=== PATIENT | female | born 1960 | race Caucasian/White ===

== ENCOUNTER 2018-03-17 14:30 | Outpatient (RCR) | payer BC, SELFPAY ==
--- NOTE | 2018-02-24 14:39 | PTTR_ITS ---
DATE: 02/24/18 SUBJECTIVE: Emily states that her shoulder is feeling quite a bit better, and she is no longer having the pain that she had been. Her exercises have been going well and she feels like she is making progress. OBJECTIVE: Manual therapy: ([id number]). Pt AROM allows 170* with end range scapular elevation. She tolerates 150* passively with impingement symptoms full IR/ER, abduction to 130*. She received PROM into all planes, and cross friction massage to the GT. She also received deep tissue mobilization to the posterior cuff and trigger point release to the infraspinatus. Post mobilization she does report improved comfort with shoulder flexion. Therapeutic procedures (92047x5). Pt was instructed in a ther ex program. She completed 10 reps of supine flexion from 60-120* followed by clockwise and counter clockwise circles for 10 reps each. We review her HEP as she was instructed in a progressed HEP for performance here in the clinic 1x per week. She will come in to perform UBE, biking, Thera band resisted strengthening, and bicep curls 1x per week. I will drop her down to 1x per week for formal tx for mobilization. Direct treatment time: 30 minutes Total treatment time: 30 minutes
--- NOTE | 2018-03-03 15:09 | PTTR_ITS ---
DATE: 03/03/18 SUBJECTIVE: Pt reports still feeling some discomfort, but better than it was and understandable given that she's only 9 weeks out from surgery. OBJECTIVE: Therapeutic procedures ([id number]). * X See flow sheet: Progressed pt's UE strengthening program to include prone shoulder series, abduction and flexion in front of mirror. * X Provided skilled instruction in proper exercise performance: Pt required min cueing to maintain good position, especially through unfamiliar prone series. * X Other: Pt to come in 2x week for next 2 weeks to complete MSP for UE strengthening before PT recheck. Direct treatment time: 30 minutes Total treatment time: 30 minutes
--- NOTE | 2018-03-17 14:30 | PTTR_ITS ---
DATE: 03/17/18 SUBJECTIVE: Emily states that her shoulder has been feeling great. 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 She states her exercises are going well, although does have questions about a couple of her exercises. Therapeutic procedures ([id number]). Patient demonstrates full AROM of L shoulder , although with end range scapular elevation. She received PROM to the L shoulder with impingement symptoms at 150degrees of flexion, otherwise ROM is full. We reviewed her independent exercise program which she has been completing here in our clinic. She does require some modification, verbal, and tactile cues for appropriate completion of horizontal abduction. We progressed resistance with bicep curls and rows, which can be found noted on flow sheet. She requires cues for appropriate completion of theraband resisted activities, although with excellent carry over. Full program is noted on flow sheet. * Direct treatment time: 35 mins Total treatment time: 45 mins with addition of 10 mins of wellness. A/P: Have patient continue 2x a week for MSP. Follow up next week prior to her MD appt for re-evaluation. SS/dl
== END 2018-03-25 23:59 | disposition home or self-care (01) ==
LOC: PT 14:30
PROVIDERS: PCP Student in an Organized Health Care Education/Training Program; Referring Provider Orthopaedic Surgery Adult Reconstructive Orthopaedic Surgery; Visit Provider Orthopaedic Surgery Adult Reconstructive Orthopaedic Surgery
DX: Z47.89 Encounter for other orthopedic aftercare (principal); M75.42 Impingement syndrome of left shoulder
CPT/HCPCS: 97110; 97140

== ENCOUNTER 2018-06-17 08:40 | Outpatient (CLI) | payer BC, SELFPAY ==
[2018-06-17 09:22] LABS: HCT 39.9 % (36.0-46.0); HGB 12.5 g/dL (12.0-15.5); Mean Corp. HGB Concentration 31.3 g/dL (32.0-36.0); Mean Corpuscular Hemoglobin 25.9 pg (27.0-33.0); Mean Corpuscular Volume 82.6 fL (80-95); Platelet Count 355 x1000/uL (130-400); RBC 4.83 m/cumm (4.00-5.20); RBC Distribution Width 13.9 % (11.7-14.6); White Blood Cell Count 5.18 k/cumm (4.4-10.8)
[2018-06-17 09:43] LABS: Lipase 118 U/L (73-393)
[2018-06-17 09:49] LABS: ALT 22 U/L (12-78); AST 19 U/L (15-37); Albumin 2.5 g/dL (3.4-5.0); Alkaline Phosphatase 94 U/L (46-116); Anion Gap 7.6 mmol/L (3-11); BUN 10 mg/dL (7-18); Bilirubin, Total 0.2 mg/dL (0.2-1.0); CO2 28.4 mmol/L (21.0-32.0); CREATININE 0.86 mg/dL (0.55-1.02); Calcium 8.4 mg/dL (8.5-10.1); Chloride 105 mmol/L (98-107); Glucose 96 mg/dL (70-100); Potassium 3.9 mmol/L (3.5-5.1); Sodium 141 mmol/L (136-145)
== END 2018-06-17 09:00 ==
PROVIDERS: PCP Student in an Organized Health Care Education/Training Program; Visit Provider Family Medicine
DX: R10.13 Epigastric pain (principal)
CPT/HCPCS: 36415; 80053; 83690; 85027

== ENCOUNTER 2018-07-01 01:34 | Outpatient (CLI) | payer BC, SELFPAY ==
--- NOTE | 2018-07-01 08:45 | DI.US_ITS ---
SYMPTOMS/DIAGNOSIS: EPIGASTRIC PAIN, RADIATING INTO BACK, PANCREATIC PATHOLOGY EVALUATION AND WEIGHT LOSS ABDOMINAL ULTRASOUND: Routine examination. No priors. The visualized liver parenchyma is normal in appearance. There is no evidence of cholelithiasis. The common bile duct is of normal diameter. The pancreas and spleen appear intact. No renal abnormality is seen. The abdominal aorta is of normal diameter. Normal appearance of IVC. IMPRESSION: Normal abdominal ultrasound.
== END 2018-07-01 01:54 ==
PROVIDERS: PCP Student in an Organized Health Care Education/Training Program; Visit Provider Student in an Organized Health Care Education/Training Program
DX: R10.13 Epigastric pain (principal); R63.4 Abnormal weight loss
CPT/HCPCS: 76700

== ENCOUNTER 2018-07-15 00:49 | Outpatient (CLI) | payer BC, SELFPAY ==
[2018-07-15 10:04] LABS: CREATININE 0.92 mg/dL (0.55-1.02)
[2018-07-15] MEDS: Omnipaque 350 MG/ML 50 ML BTL PO (10:15)
[2018-07-15] MEDS: Breeza Beverage 473 ML BTL PO (10:16)
--- NOTE | 2018-07-15 11:30 | DI.CT_ITS ---
SYMPTOM/DIAGNOSIS: ABD PAIN WITH UNEXPLAINED WT LSOS ABDOMEN AND PELVIC CT: There are no prior comparison exams. Images were performed from the lung bases through the ischial tuberosities after IV and oral contrast. The lung bases are clear. There is a small hiatal hernia. The liver, gallbladder, spleen, pancreas, adrenals and kidneys are unremarkable. There is an area of wall thickening in the proximal sigmoid colon, overall length of approximately 7 cm. There is narrowing of the lumen. Proximal to this area, there is increased quantity of stool. There is some mild stranding in the adjacent fat. No diverticula are visible. The findings are highly suspicious for a colon carcinoma. There are tiny but enlarged mesenteric lymph nodes in the vicinity of the mass. There is a trace amount of fluid in the pelvis. The bladder, uterus and ovaries are unremarkable. IMPRESSION: Large mass in the proximal sigmoid colon is suspicious for carcinoma. There is no evidence of metastatic disease.
[2018-07-15] MEDS: Omnipaque 350 MG/ML 100 ML BTL IJ (11:32)
== END 2018-07-15 01:09 ==
PROVIDERS: PCP Student in an Organized Health Care Education/Training Program; Visit Provider Family Medicine
DX: R10.9 Unspecified abdominal pain (principal); R63.4 Abnormal weight loss; N28.9 Disorder of kidney and ureter, unspecified; K63.89 Other specified diseases of intestine; D37.4 Neoplasm of uncertain behavior of colon; K44.9 Diaphragmatic hernia without obstruction or gangrene
CPT/HCPCS: 36415; 74177; 82565; J3490; Q9967

== ENCOUNTER 2019-01-03 00:27 | Outpatient (CLI) | payer BC, SELFPAY ==
--- NOTE | 2019-01-03 08:30 | DI.CT_ITS ---
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 No pulmonary nodule is identified. There is no evidence of an infiltrate or pleural effusion. The heart is not enlarged. There is no pericardial effusion. The aorta is intact. Degenerative changes involving the dorsal spine are demonstrated. There is nothing to suggest metastases. The liver, gallbladder, pancreas, spleen and kidneys are intact. The adrenals are normal. There is no evidence of adenopathy. There is no evidence of bowel obstruction. The patient is status post resection of a sigmoid carcinoma. There is no evidence of pelvic adenopathy or mass. The bladder is normal. The reproductive organs as visualized are intact. There are degenerative changes involving the lumbar spine and no bony findings to suggest metastatic disease. SUMMARY: No evidence of metastatic disease in the chest, abdomen or pelvis.
[2019-01-03 09:01] LABS: Abs Immature Grans 0.01 k/cumm (0.0-0.09); Absolute Basophil Count 0.02 k/cumm (0.0-0.2); Absolute Eosinophil Count 0.07 k/cumm (0.0-0.7); Absolute Lymphocyte Count 1.66 k/cumm (1.2-3.4); Absolute Monocyte Count 0.31 k/cumm (0.11-0.7); Absolute Neutrophil Count 2.43 k/cumm (1.2-6.7); Basophils % 0.4; Eosinophils % 1.6; HCT 38.3 % (36.0-46.0); HGB 11.9 g/dL (12.0-15.5); Immature Grans % 0.2; Lymphocytes % 36.9; Mean Corp. HGB Concentration 31.1 g/dL (32.0-36.0); Mean Corpuscular Hemoglobin 24.8 pg (27.0-33.0); Mean Corpuscular Volume 79.8 fL (80-95); Mean Platelet Volume 9.1 fL (8.0-11.0); Monocytes % 6.9; Platelet Count 274 x1000/uL (130-400)
[2019-01-03 09:14] LABS: ALT 26 U/L (12-78); AST 22 U/L (15-37); Albumin 2.6 g/dL (3.4-5.0); Alkaline Phosphatase 91 U/L (46-116); Anion Gap 6.9 mmol/L (3-11); BUN 19 mg/dL (7-18); Bilirubin, Total 0.2 mg/dL (0.2-1.0); CO2 29.1 mmol/L (21.0-32.0); CREATININE 0.85 mg/dL (0.55-1.02); Calcium 8.3 mg/dL (8.5-10.1); Chloride 105 mmol/L (98-107); Glucose 101 mg/dL (70-100); Potassium 3.8 mmol/L (3.5-5.1); Sodium 141 mmol/L (136-145); Total Protein 6.3 g/dL (6.4-8.2)
[2019-01-03] MEDS: Omnipaque 350 MG/ML 100 ML BTL IJ (10:30)
[2019-01-03] MEDS: Omnipaque 350 MG/ML 50 ML BTL IJ (10:31)
[2019-01-03] MEDS: Breeza Beverage 473 ML BTL PO (10:32)
[2019-01-04 10:29] LABS: CEA <0.5 ng/ml
== END 2019-01-03 00:47 ==
PROVIDERS: PCP Student in an Organized Health Care Education/Training Program; Visit Provider Internal Medicine Hematology & Oncology
DX: C18.7 Malignant neoplasm of sigmoid colon (principal)
CPT/HCPCS: 36415; 74177; 80053; 71260; 82378; 85025; J3490; Q9967

== ENCOUNTER 2019-01-13 01:17 | Outpatient (CLI) | payer BC, SELFPAY ==
--- NOTE | 2019-01-13 16:03 | DI.MAMMO_ITS ---
SYMPTOM/DIAGNOSIS: SCREENING, H/O COLON CA MAMMOGRAMS: Mammograms were interpreted according to the usual protocol including computer analysis with CAD system, tomosynthesis and C view imaging. Comparison is made with 2014. The breasts are composed of fatty density tissue, breast density, Category A. No suspicious masses or suspicious microcalcifications are seen. There has been no significant change. IMPRESSION: Category 1, negative mammogram. Yearly screening mammography is recommended. [facility] ASSESSMENT OF FINDINGS: Negative. Category 1. Patient will receive a letter notifying them of these results. BI-RAD category A. The breasts are almost entirely fatty.
== END 2019-01-13 01:37 ==
PROVIDERS: PCP Student in an Organized Health Care Education/Training Program; Visit Provider Nurse Practitioner Adult Health
DX: Z12.31 Encounter for screening mammogram for malignant neoplasm of breast (principal); Z85.038 Personal history of other malignant neoplasm of large intestine
CPT/HCPCS: 77063; 77067

== ENCOUNTER 2019-04-10 15:57 | Outpatient (CLI) | payer BC, SELFPAY ==
[2019-04-10 16:19] LABS: Abs Immature Grans 0.01 k/cumm (0.0-0.09); Absolute Basophil Count 0.02 k/cumm (0.0-0.2); Absolute Eosinophil Count 0.08 k/cumm (0.0-0.7); Absolute Lymphocyte Count 1.63 k/cumm (1.2-3.4); Absolute Monocyte Count 0.48 k/cumm (0.11-0.7); Absolute Neutrophil Count 3.89 k/cumm (1.2-6.7); Basophils % 0.3; Eosinophils % 1.3; HCT 39.5 % (36.0-46.0); HGB 12.5 g/dL (12.0-15.5); Immature Grans % 0.2; Lymphocytes % 26.7; Mean Corp. HGB Concentration 31.6 g/dL (32.0-36.0); Mean Corpuscular Hemoglobin 26.6 pg (27.0-33.0); Mean Platelet Volume 8.8 fL (8.0-11.0); Monocytes % 7.9; Neutrophils % 63.6; Platelet Count 305 x1000/uL (130-400); RBC Distribution Width 15.3 % (11.7-14.6); White Blood Cell Count 6.11 k/cumm (4.4-10.8)
[2019-04-10 16:27] LABS: ALT 25 U/L (14-59); AST 26 U/L (15-37); Alkaline Phosphatase 90 U/L (46-116); BUN 17 mg/dL (7-18); Bilirubin, Total 0.2 mg/dL (0.2-1.0); CREATININE 1.06 mg/dL (0.55-1.02); Calcium 8.3 mg/dL (8.5-10.1); Chloride 105 mmol/L (98-107); Estimated GFR 52.88 (mL/min/1.73m2); Glucose 105 mg/dL (70-100); Potassium 3.8 mmol/L (3.5-5.1); Sodium 143 mmol/L (136-145)
[2019-04-12 09:33] LABS: CEA <0.5 ng/ml
== END 2019-04-10 16:17 ==
PROVIDERS: PCP Student in an Organized Health Care Education/Training Program; Visit Provider Internal Medicine Hematology & Oncology
DX: C18.7 Malignant neoplasm of sigmoid colon (principal)
CPT/HCPCS: 36415; 80053; 82378; 85025

== ENCOUNTER 2019-07-17 00:54 | Outpatient (CLI) | payer BC, SELFPAY ==
[2019-07-17 09:21] LABS: ALT 23 U/L (14-59); AST 25 U/L (15-37); Albumin 2.7 g/dL (3.4-5.0); Alkaline Phosphatase 77 U/L (46-116); Anion Gap 8.6 mmol/L (3-11); BUN 21 mg/dL (7-18); Bilirubin, Total 0.4 mg/dL (0.2-1.0); CO2 29.4 mmol/L (21.0-32.0); CREATININE 0.81 mg/dL (0.55-1.02); Calcium 8.3 mg/dL (8.5-10.1); Chloride 112 mmol/L (98-107); Glucose 104 mg/dL (74-106); Potassium 4.5 mmol/L (3.5-5.1); Sodium 150 mmol/L (136-145); Total Protein 6.1 g/dL (6.4-8.2)
--- NOTE | 2019-07-17 09:59 | DI.CT_ITS ---
EXAM: CT CHEST/ABD/PEL W CLINICAL HISTORY: MALIGNANT NEOPLASM SIGMOID COLON, C18.7 SURVEILLANCE. TECHNIQUE: Imaging Protocol: Axial computed tomography images with coronal and sagittal reformatted images were created and reviewed CONTRAST MATERIAL: Intravenous: Omnipaque 350 Contrast volume 100 cc's. Oral: yes COMPARISON: CT CHEST/ABD/PEL W from 01/03/2019 FINDINGS: CHEST: Tracheobronchial tree: Patent where visualized. Mediastinum and Lou: No dominant adenopathy or fluid collection. Pulmonary parenchyma: No consolidation or dominant measurable mass. No architectural distortion. The re is again seen a calcified granuloma in the left lower lobe. Pleura: No effusion or pneumothorax. Lymph nodes: Within normal limits. Aorta: Thoracic portion non-dilated. Heart: Unremarkable. No pericardial effusion. Bones: Degenerative changes are present. No evidence of osseous metastatic disease. ABDOMEN: Liver: Normal density. No measurable mass. Gallbladder and biliary tract: No radiodense calculus or dilation. Pancreas: Normal density, no abnormal calcifications or inflammatory process. Spleen: Normal. Kidneys: Normal size, contour and axis. No radiodense stones or obstructive uropathy. No masses seen. Adrenal glands: No masses seen. Aorta: Abdominal portion non-dilated. Lymph nodes: Within normal limits. PELVIS: Bladder: Symmetric distention, no gross wall thickening. Bowel: No obstruction or bowel wall thickening. The appendix is normal in size without evidence of ad jacent mesenteric fat stranding or adjacent fluid collection. Peritoneal cavity: No ascites, collection or mesenteric inflammatory response. Bones: Within normal limits. Reproductive organs: Within normal limits. IMPRESSION: 1. No evidence of abdominal or pelvic metastatic disease. 2. No evidence of thoracic metastatic disease. DATA REPOSITORY: All CT scans at this facility are submitted to the National Radiology Data Registry (NRDR) Dose Index Registry (DIR) with the [employer] (ACR). RADIATION OPTIMIZATION: All CT scans at this facility use at least one of these dose optimization te chniques: automated exposure control; mA and/or kV adjustment per patient size (includes targeted exa ms where dose is matched to clinical indication); or iterative reconstruction.
[2019-07-17] MEDS: Omnipaque 350 MG/ML 100 ML BTL IJ (10:06)
[2019-07-17] MEDS: Omnipaque 350 MG/ML 50 ML BTL IJ (10:12)
[2019-07-17] MEDS: Breeza Beverage 473 ML BTL PO (10:13)
[2019-07-17 11:20] LABS: Absolute Basophil Count 0.02 k/cumm (0.0-0.2); Absolute Lymphocyte Count 1.23 k/cumm (1.2-3.4); Absolute Monocyte Count 0.28 k/cumm (0.11-0.7); Absolute Neutrophil Count 2.54 k/cumm (1.2-6.7); Basophils % 0.5; Eosinophils % 2.4; HGB 12.5 g/dL (12.0-15.5); Lymphocytes % 29.5; Mean Corp. HGB Concentration 32.1 g/dL (32.0-36.0); Mean Corpuscular Hemoglobin 27.5 pg (27.0-33.0); Mean Corpuscular Volume 85.7 fL (80-95); Mean Platelet Volume 9.3 fL (8.0-11.0); Monocytes % 6.7; Neutrophils % 60.9; Platelet Count 271 x1000/uL (130-400); RBC 4.55 m/cumm (4.00-5.20); RBC Distribution Width 13.7 % (11.7-14.6); White Blood Cell Count 4.17 k/cumm (4.4-10.8)
== END 2019-07-17 01:14 ==
PROVIDERS: PCP Student in an Organized Health Care Education/Training Program; Visit Provider Nurse Practitioner Adult Health
DX: C18.7 Malignant neoplasm of sigmoid colon (principal); Z12.89 Encounter for screening for malignant neoplasm of other sites; J98.4 Other disorders of lung
CPT/HCPCS: 74177; 80053; 71260; 82378; 85025; J3490; Q9967

== ENCOUNTER 2019-07-20 07:45 | Outpatient (CLI) | payer BC, SELFPAY ==
[2019-07-21 11:34] LABS: CEA <0.5 ng/mL (See Note)
== END 2019-07-20 08:05 ==
PROVIDERS: PCP Student in an Organized Health Care Education/Training Program; Visit Provider Internal Medicine Hematology & Oncology
DX: C18.7 Malignant neoplasm of sigmoid colon (principal)
CPT/HCPCS: 36415; 82378

== ENCOUNTER 2019-11-22 03:59 | Outpatient (CLI) | payer BC, SELFPAY ==
[2019-11-22 15:32] LABS: Abs Immature Grans 0.01 k/cumm (0.0-0.09); Absolute Basophil Count 0.01 k/cumm (0.0-0.2); Absolute Eosinophil Count 0.09 k/cumm (0.0-0.7); Absolute Lymphocyte Count 1.73 k/cumm (1.2-3.4); Absolute Monocyte Count 0.39 k/cumm (0.11-0.7); Absolute Neutrophil Count 4.15 k/cumm (1.2-6.7); Basophils % 0.2; Eosinophils % 1.4; HCT 41.1 % (36.0-46.0); HGB 13.6 g/dL (12.0-15.5); Immature Grans % 0.2 %; Lymphocytes % 27.1; Mean Corp. HGB Concentration 33.1 g/dL (32.0-36.0); Mean Corpuscular Hemoglobin 27.8 pg (27.0-33.0); Mean Platelet Volume 8.6 fL (8.0-11.0); Monocytes % 6.1; Platelet Count 248 x1000/uL (130-400); RBC 4.89 m/cumm (4.00-5.20); RBC Distribution Width 12.8 % (11.7-14.6); White Blood Cell Count 6.38 k/cumm (4.4-10.8)
[2019-11-22 15:41] LABS: ALT 25 U/L (14-59); AST 21 U/L (15-37); Albumin 2.9 g/dL (3.4-5.0); Alkaline Phosphatase 94 U/L (46-116); Anion Gap 3.7 mmol/L (3-11); BUN 21 mg/dL (7-18); Bilirubin, Total 0.2 mg/dL (0.2-1.0); CO2 31.3 mmol/L (21.0-32.0); Calcium 8.7 mg/dL (8.5-10.1); Chloride 102 mmol/L (98-107); Estimated GFR 56.56 (mL/min/1.73m2); Glucose 96 mg/dL (74-106); Potassium 4.1 mmol/L (3.5-5.1); Sodium 137 mmol/L (136-145); Total Protein 6.7 g/dL (6.4-8.2)
[2019-11-23 10:19] LABS: CEA <0.5 ng/mL (See Note)
== END 2019-11-22 04:19 ==
PROVIDERS: PCP Student in an Organized Health Care Education/Training Program; Visit Provider Internal Medicine Hematology & Oncology
DX: C18.7 Malignant neoplasm of sigmoid colon (principal)
CPT/HCPCS: 36415; 80053; 82378; 85025

== ENCOUNTER 2020-02-28 02:57 | Outpatient (CLI) | payer BC, SELFPAY ==
[2020-02-28] MEDS: Omnipaque 350 MG/ML 50 ML BTL IJ (08:10)
[2020-02-28] MEDS: Breeza Beverage 473 ML BTL PO ×3 (08:11→08:13)
[2020-02-28 08:12] LABS: CREATININE 0.84 mg/dL (0.55-1.02)
--- NOTE | 2020-02-28 09:20 | DI.CT_ITS ---
EXAM: CT CHEST/ABD/PEL W CLINICAL HISTORY: SIGMOID COLON CA,C18.7,CRC SURVEILLANCE, RESTAGING EXAM TECHNIQUE: COMPARISON: CT CT CHEST/ABD/PEL W from 07/17/2019 FINDINGS: CT examination of the chest abdomen and pelvis was performed with bolus infusion of 100 cc Omnipaque 350 ingestion of dilute barium. The lungs are clear. There is segmental and subsegmental pulmonary embolic disease in right lower lo be pulmonary arterial circulation. No other embolus identified. Thoracic aorta and major branches a ppear intact. No mediastinal or hilar adenopathy. No pleural effusion. No axillary or supraclavicu lar adenopathy. The liver appears normal as does the spleen. No focal metastatic lesion identified. Pancreas is unr emarkable in appearance. Gallbladder and bile ducts are CT normal. Adrenals and kidneys appear normal, no renal mass, no urinary tract calcification or obstruction. Abdominal aorta is of normal diameter and major visceral branches appear intact. Appendix is normal. Patient reportedly has history of prior sigmoid colon carcinoma, anastomosis bello ears intact, no specific evidence of recurrent disease or obstruction. No retroperitoneal or mesente melinda adenopathy. [employer] structures appear intact. No pelvic or inguinal adenopathy. No significant abdominal wall hernia seen. No suspicious bony lesion seen on scanning of the chest abdomen or pelvis. IMPRESSION: CT of the chest, abdomen, and pelvis is negative for metastatic disease. Note is made of pulmonary emboli in right lower lobe segmental and subsegmental vessels.
[2020-02-28] MEDS: Normal Saline - Diluent 50 ML VIAL IV (09:41)
[2020-02-28] MEDS: Omnipaque 350 MG/ML 100 ML BTL IJ (09:41)
[2020-02-28] MEDS: Normal Saline Flush 10 ML SYR IVP (09:42)
[2020-02-28 18:10] LABS: ALT 21 U/L (14-59); AST 20 U/L (15-37); Albumin 2.9 g/dL (3.4-5.0); Alkaline Phosphatase 87 U/L (46-116); Anion Gap 6.1 mmol/L (3-11); BUN 11 mg/dL (7-18); Bilirubin, Total 0.3 mg/dL (0.2-1.0); CO2 28.9 mmol/L (21.0-32.0); Calcium 8.9 mg/dL (8.5-10.1); Chloride 105 mmol/L (98-107); Glucose 110 mg/dL (74-106); Potassium 4.2 mmol/L (3.5-5.1); Sodium 140 mmol/L (136-145); Total Protein 6.6 g/dL (6.4-8.2)
[2020-03-01 08:42] LABS: CEA <0.5 ng/mL (See Note)
== END 2020-02-28 03:17 ==
PROVIDERS: PCP Student in an Organized Health Care Education/Training Program; Visit Provider Nurse Practitioner Adult Health
DX: C18.7 Malignant neoplasm of sigmoid colon (principal); I26.94 Multiple subsegmental thrombotic pulmonary emboli without acute cor pulmonale
CPT/HCPCS: 74177; 80053; 71260; 82378; 82565; J3490; Q9967

== ENCOUNTER 2020-03-01 01:57 | Outpatient (CLI) | payer BC, SELFPAY ==
[2020-03-01 10:00] LABS: INR 1.2 (0.9-1.1)
== END 2020-03-01 02:17 ==
PROVIDERS: Internal Medicine; PCP Student in an Organized Health Care Education/Training Program; Visit Provider Student in an Organized Health Care Education/Training Program
DX: I80.02 Phlebitis and thrombophlebitis of superficial vessels of left lower extremity (principal)
CPT/HCPCS: 36415; 85610

== ENCOUNTER 2020-03-04 02:16 | Outpatient (CLI) | payer BC, SELFPAY ==
[2020-03-04 12:51] LABS: INR 1.8 (0.9-1.1); Prothrombin Time 17.6 sec (9.3-11.0)
== END 2020-03-04 02:36 ==
PROVIDERS: PCP Student in an Organized Health Care Education/Training Program; Visit Provider Student in an Organized Health Care Education/Training Program
DX: I26.99 Other pulmonary embolism without acute cor pulmonale (principal); Z79.01 Long term (current) use of anticoagulants
CPT/HCPCS: 36415; 85610

== ENCOUNTER 2020-03-06 03:20 | Outpatient (CLI) | payer BC, SELFPAY ==
[2020-03-06 13:26] LABS: INR 2.5 (0.9-1.1); Prothrombin Time 24.7 sec (9.3-11.0)
== END 2020-03-06 03:40 ==
PROVIDERS: Nurse Practitioner Adult Health; PCP Student in an Organized Health Care Education/Training Program; Visit Provider Student in an Organized Health Care Education/Training Program
DX: I26.99 Other pulmonary embolism without acute cor pulmonale (principal); Z79.01 Long term (current) use of anticoagulants; I80.02 Phlebitis and thrombophlebitis of superficial vessels of left lower extremity
CPT/HCPCS: 36415; 85610

== ENCOUNTER 2020-06-19 02:24 | Outpatient (CLI) | payer BC, SELFPAY ==
[2020-06-19 07:44] LABS: Abs Immature Grans 0.01 10^3/uL (0.0-0.06); Absolute Basophil Count 0.02 10^3/uL (0.0-0.2); Absolute Eosinophil Count 0.07 10^3/uL (0.0-0.7); Absolute Lymphocyte Count 1.39 10^3/uL (1.2-3.4); Absolute Monocyte Count 0.24 10^3/uL (0.1-0.8); Absolute Neutrophil Count 2.68 10^3/uL (1.2-6.7); Basophils % 0.5; Eosinophils % 1.6; HCT 42.2 % (36.0-46.0); HGB 13.3 g/dL (11.2-15.7); Immature Grans % 0.2; Lymphocytes % 31.5; MCH 27.5 pg (27.0-33.0); MCHC 31.5 % (32.0-36.0); MCV 87.2 fL (80-95); MPV 8.9 fL (8.0-11.0); Monocytes % 5.4; Neutrophils % 60.8; Nucleated RBC 0 %; Platelet Count 257 10^3/uL (130-400); RBC 4.84 10^6/uL (3.93-5.22); RDW 13.5 % (11.7-14.6); WBC 4.41 10^3/uL (4.4-10.8)
[2020-06-19 08:11] LABS: ALT 21 U/L (14-59); AST 21 U/L (15-37); Albumin 2.8 g/dL (3.4-5.0); Alkaline Phosphatase 91 U/L (46-116); Anion Gap 4.3 mmol/L (3-11); BUN 12 mg/dL (7-18); Bilirubin, Total 0.3 mg/dL (0.2-1.0); CO2 29.7 mmol/L (21.0-32.0); CREATININE 0.95 mg/dL (0.55-1.02); Calcium 8.3 mg/dL (8.5-10.1); Calculated LDL 205 mg/dL (<100); Chloride 107 mmol/L (98-107); Cholesterol 282 mg/dL (<200); Glucose 95 mg/dL (74-106); HDL Cholesterol 49 mg/dL (40-60); Potassium 4.2 mmol/L (3.5-5.1); Sodium 141 mmol/L (136-145); Total Protein 6.4 g/dL (6.4-8.2); Triglyceride 144 mg/dL (<150)
[2020-06-19 19:51] LABS: CEA <0.5 ng/mL (See Note)
== END 2020-06-19 02:44 ==
PROVIDERS: PCP Student in an Organized Health Care Education/Training Program; Visit Provider Internal Medicine Hematology & Oncology
DX: Z00.00 Encounter for general adult medical examination without abnormal findings (principal); D50.9 Iron deficiency anemia, unspecified; E86.0 Dehydration; R53.83 Other fatigue; Z85.038 Personal history of other malignant neoplasm of large intestine
CPT/HCPCS: 36415; 80048; 80053; 80061; 85027; 82378; 85025; 85610

== ENCOUNTER 2020-07-09 00:34 | Outpatient (CLI) | payer BC, SELFPAY ==
--- NOTE | 2020-07-09 16:22 | DI.MAMMO_ITS ---
EXAM: MAMMO SCREENING CLINICAL HISTORY: screening,Z12.39. TECHNIQUE: Bilateral full field digital CC and MLO mammographic images were obtained with 3D tomosyn thesis and utilizing computer aided detection (CAD). COMPARISON: Prior mammograms dating back to 2013, the most recent being December 2018. FINDINGS: There are no CAD designations. There are no spiculated masses nor malignant appearing microcalcification groups. Small benign-appear ing nodule posteriorly in the right breast is unchanged from prior studies and probably a small benig n intramammary lymph node. Small benign-appearing nodule upper-outer quadrant left breast is also un changed, this seen only on 3D MLO imaging and measuring 3 x 2 millimeters. No new architectural dist ortion or skin thickening-traction. IMPRESSION: No radiographic evidence of malignancy. Stable benign findings. BI-RADS Category 2 - Benign Findings Breast Density - Category B - Scattered areas of fibroglandular density Breast density Category C or D implies that the patient has dense breast tissue. Dense breast tissue can make it harder to find cancer on a mammogram. Dense breast tissue is also associated with an incr eased risk of breast cancer. This information about the result of the mammogram report was provided to the patient to raise their awareness. Use this report when you speak with the patient about their risks for breast cancer, which includes their family history. At that time, you may recommend additional screening tests (Ultrasoun d or MRI) as these tests may add significant information. A negative radiographic report should not delay biopsy if a dominant or clinically suspicious mass is present. Up to ten percent of cancers are not identified on mammography. A negative report may reinforce clinical impression. Adenosis and dense breasts may obscure an underlying neoplasm. False positive reports average 6 to 10%. Patient will receive a letter notifying them of these results.
== END 2020-07-09 00:54 ==
PROVIDERS: PCP Student in an Organized Health Care Education/Training Program; Visit Provider Student in an Organized Health Care Education/Training Program
DX: Z12.31 Encounter for screening mammogram for malignant neoplasm of breast (principal)
CPT/HCPCS: 77063; 77067

== ENCOUNTER 2020-08-15 10:28 | Emergency (ER) | payer BC, SELFPAY ==
[2020-08-15 10:32] VITALS: BP 146/86; PULSE 88; RESP 20; TEMP 36; O2SAT 98
--- NOTE | 2020-08-15 11:00 | DI.US_ITS ---
EXAM: US LOWER EXTREMITY VENOUS RT CLINICAL HISTORY: pain, hx of dvt TECHNIQUE: Right lower extremity venous ultrasound performed using grayscale, color-flow, and spectr al Doppler analysis. COMPARISON: No exams were available for comparison FINDINGS: The right common femoral, femoral and popliteal veins demonstrate normal compressibility, augmentatio n, and color Doppler. The posterior tibial veins are patent. The saphenofemoral junction is unremark able. Approximately 1.9 cm from the saphenofemoral junction, the greater saphenous vein is thrombose d from the proximal thigh to the distal thigh. There is no evidence of a Butcher cyst. The soft tissu es are unremarkable. IMPRESSION: No DVT. DATA REPOSITORY:
--- OUTSIDE RECORDS SUMMARY | 2020-08-15 11:07 | XMS_ITS ---
:1960 Author Care Team Providers Name Role Phone DR. CELI CORREA Primary Care Provider [phone] DR. CELI CORREA Referring Provider [phone] CELI CORREA DO Primary Care Provider [phone] Allergies Code Code System Name Reaction Severity Status Onset NKDA ? Medications Name Status Start Date Stop Date ? ? acetaminophen 325 mg tablet Active 09/15/2018 Not available Take 1000 mg every 6 hours by oral route as needed. Aleve Active ? Not available one at bedtime fluticasone propionate Active 09/15/2018 Not avail able 2 sprays NS daily ibuprofen 800 mg tablet Active 09/15/2018 Not avai lable Take 1 tablet 3 times a day by oral route. mometasone-formoterol HFA 100 Active 09/15/2018 No t available mcg-5 mcg/actuation aerosol inhaler warfarin 5 mg tablet Active ? Not availab le TAKE 1 TABLET (5 MG) BY ORAL ROUTE ONCE DAILY OR DIRECTED Problems Name Status Onset Date Source ? Depressive Disorder Active ? ? 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 ? Varicose Veins of Bilateral Lower Limbs Active ? ? Procedures Date Name Performed by ? 01/22/2020 Percutaneous Endovenous Ablation Therapy , Radiofrequency (Surg) Information not available Notes: right ? Colonoscopy Information not avai lable ? Shoulder Surgery Information not avai lable Notes: left shoulder ? Knee Surgery Information not avai lable ? Knee Surgery Information not avai lable Notes: meniscus and spur nremoval and then total knee left ? Knee Surgery Information not avai lable Notes: lateral release right knee ? Carpal Tunnel Surgery Information not av ailable Notes: bilat ? Foot Surgery Information not avai lable Notes: left took bone out of the side 08/23/2018 CT, Chest, W/o Contrast [facility] - Radiology [address] [place] [id number] (Work Place) 08/25/2018 CT, Chest, W/ Contrast [facility]iology [address] [place] [address] (Work Place) 02/27/2020 US, Duplex, Venous, Lower Extremity [facility] Radiology [address] [place] [address] (Work Place) 03/06/2020 US, Duplex, Venous, Lower Extremity, [facility] Complete [address] [place] [address] (Work Place) 03/29/2020 US, Duplex, Venous, Lower Extremity, [facility] Complete [address] [place] [address] (Work Place) 06/27/2020 US, Duplex, Venous, Lower Extremity, [facility] Unilateral [address] [place] [address] (Work Place) 07/24/2020 US, Duplex, Venous, Lower Extremity, [facility] Unilateral [address] [place] [address] (Work Place) Notes: SIGMOID RESECTION LAPAROS COPIC HAND ASSISTED SEP 14 2018 bilateral cataract surgery Results Lab Results Date Name Specimen Result Interpretation Description Value Range Status Address ? 07/23/2020 Prothrombin Time P High ? 20.9 sec 9.4-11.3 Final [facility] (Lab): [address] [place] [address] ? ? P ? Inr 2.06 ? Final [facility] (Lab): [address] [place] [address] 07/17/2020 COVID-19 RNA ? Upper nasopharyng ? Fi nal [facility] (SARS-CoV-2), QL, Respirato ea Hospital bus inspector-PCR, ry Source (Lab) : [address] [facility] ? ? Normal Sars not not Final [facility] Cov-2 RNA detected detected Hos pital (Covid-19 (Lab): 90 ) [facility] 01/22/2020 CBC W/ Auto Diff WB Normal Wbc 5.5 4.8-10.8 F inal [facility] 10^3/mm^3 10^3/mm^3 Hosp ital (Lab): [facility] ? ? WB Normal Rbc 4.81 3.90-5.03 Final [facility] 10^6/mm^3 10^6/mm^3 Hosp ital (Lab): [facility] ? ? WB Normal Hgb 13.9 g/dL 12.0-15.5 Final [facility] age g/dL Hospital (Lab): [facility] ? ? WB Normal Hct 42 % 36-46 % Final [facility] Hospital (Lab): [facility] ? ? WB Normal Mcv 87.9 fL 81.0-99.0 Final [facility] Hospital (Lab): [facility] ? ? WB Normal Mch 28.9 pg 27.1-32.0 Final [facility] (Lab): [facility] ? ? WB Normal Mchc 33 g/dL 33-36 Final [facility] g/dL Hospital (Lab): [facility] ? ? WB Normal Rdw 14.1 % 11.6-14.8 [facility] ? ? WB Normal Platelet 255 150-400 [facility]^3/mm^3 10^3/mm^3 Hosp ital (Lab): [facility] ? ? WB Normal Ne# 3.34 1.20-6.70 Final [facility] 10^3/mm^3 10^3/mm^3 Hosp ital (Lab): [facility] ? ? WB Normal Ly# 1.51 1.20-3.40 Final [facility] 10^3/mm^3 10^3/mm^3 Hosp ital (Lab): [facility] ? ? WB Normal Mo# 0.43 0.11-0.70 Final [facility] 10^3/mm^3 10^3/mm^3 Hosp ital (Lab): [facility] ? ? WB Normal Eo# 0.23 0.00-0.70 Final [facility] 10^3/mm^3 10^3/mm^3 Hosp ital (Lab): [facility] ? ? WB Normal Ba# 0.02 0.00-0.20 Final [facility] 10^3/mm^3 10^3/mm^3 Hosp ital (Lab): [facility] ? ? WB Normal Neut% 60 % per 40-74 % Final [facility] 100 WBC per 100 Hospital WBC (Lab): [facility] ? ? WB Normal Ly% 27 % per 19-48 % [facility] 100 WBC per 100 Hospital WBC (Lab): [facility] ? ? WB Normal Mo% 7.8 % per 3.0-10.0 Final [place] [facility] WBC % per 100 Hospit al WBC (Lab): [facility] ? ? WB Normal Eo% 4.2 % per 1.0-7.0 % Final [facility] 100 WBC per 100 Hospital WBC (Lab): [facility] ? ? WB Normal Ba% 0.4 % per 0.0-2.0 % Final [facility] 100 WBC per 100 Hospital WBC (Lab): [address] [place] [address] 01/22/2020 Hepatic Function P Normal Alt 29 U/L 14-59 U/L Final [facility] Panel, Serum Hosp ital (Lab): [address] [place] [address] ? ? P Normal Ast 27 U/L 15-37 U/L Final [facility] Hospital (Lab): [address] [place] [address] ? ? P Normal Alkp 83 U/L 50-130 Final [facility] U/L Hospital (Lab): [address] [place] [address] ? ? P Normal Tbil 0.4 mg/dL <=1.2 [facility] ([facility] [address] [place] [address] ? ? P Normal Dbil 0.09 mg/dL 0.00-0.20 Final [facility] mg/dL Hospital (Lab): [address] [place] [address] ? ? P Normal Tp 6.8 g/dL 6.4-8.2 [facility] ([facility] [address] [place] [address] ? ? P Low Alb 3.0 g/dL 3.4-5.0 [facility] ([facility] [address] [place] [address] ? ? P ? Glob 3.78 mg/dL ? Final [facility] e Hospital (Lab): [address] [place] [address] 01/22/2020 Carcinoembryonic S Normal Cea 0.9 NG/mL 0.0-3.8 Final [facility] Ag, Quant, Serum NG/mL Hospital or Plasma (Lab): [address] [place] [address] 01/15/2020 COVID-19 RNA ? Upper nasopharyng ? [facility] ([facility] QL, Respirato eal Hospital bus inspector-PCR, ry Source (Lab) : [address] [facility] ? ? Normal Sars not not Final [facility] Cov-2 RNA detected detected Hos pital (Covid-19 (Lab): 90 ) [facility] 09/14/2018 BMP, Serum or P High Glu 131.0 mg/dL 70.0-100 . Final [facility] Plasma 0 mg/dL Hospital (Lab): [address] [place] [address] ? ? P Normal Bun 9 mg/dL 7-18 [facility] (Lab[facility] [address] [place] [address] ? ? P Normal Creat 0.77 mg/dL 0.55-1.02 Final [facility] mg/dL Hospital (Lab): [address] [place] [address] ? ? P Normal Na 139 mEq/L 136-145 Final [facility] e mEq/L Hospital (Lab): [address] [place] [address] ? ? P Normal K 4.4 mEq/L 3.5-5.1 Final [facility] e mEq/L Hospital (Lab): [address] [place] [address] ? ? P Normal Cl 103 mEq/L 98-107 Final [facility] mEq/L Hospital (Lab): [address] [place] [address] ? ? P Normal Co2 28 mEq/L 21-32 Final [facility] mEq/L Hospital (Lab): [address] [place] [address] ? ? P Low Ca 8.0 mg/dL 8.5-10.1 [facility] (Lab[facility] [address] [place] [address] ? ? P ? Agap 12.4 ratio ? Final [facility] e Hospital (Lab): 90 [facility] ? ? P ? Bn/cr 11.8 calc ? Final [facility] Hospital (Lab): [facility] ? ? P ? Egfraa 92.99 ? Final [facility] Hospital (Lab): 90 [facility] ? ? P ? Egfrnaa 76.73 ? Final [facility] Hospital (Lab): [address] [place] [address] 09/14/2018 CBC W/ Auto Diff WB High Wbc 11.6 4.8-10.8 [facility] 10^3/mm^3 10^3/mm^3 Hosp ital (Lab): [facility] ? ? WB Normal Rbc 4.50 3.90-5.03 Final [facility] 10^6/mm^3 10^6/mm^3 Hosp ital (Lab): [facility] ? ? WB Low Hgb 11.4 g/dL 12.0-15.5 Final [facility] [place] Hospital (Lab): [address] [place] [address] ? ? WB Normal Hct 37 % 36-46 % Final [facility] Hospital (Lab): [facility] ? ? WB Normal Mcv 82.4 fL 81.0-99.0 Final [facility] Hospital (Lab): [address] [place] [address] ? ? WB Low Mch 25.3 pg 33.0-36.0 Final [facility] Hospital (Lab): [address] [place] [address] ? ? WB Low Mchc 31 g/dL 33-36 Final [facility] g/dL Hospital (Lab): [facility] ? ? WB Normal Rdw 14.7 % 11.6-14.8 Final [facility] % Hospital (Lab): [facility] ? ? WB Normal Plt 326 150-400 Final [facility] 10^3/mm^3 10^3/mm^3 Hosp ital (Lab): [facility] ? ? WB High Ne# 9.83 1.20-6.70 Final [facility] 10^3/mm^3 10^3/mm^3 Hosp ital (Lab): [facility] ? ? WB Low Ly# 0.90 1.20-3.40 Final [facility] 10^3/mm^3 10^3/mm^3 Hosp ital (Lab): [facility] ? ? WB High Mo# 0.82 0.11-0.70 Final [facility] 10^3/mm^3 10^3/mm^3 Hosp ital (Lab): [facility] ? ? WB Normal Eo# 0.00 0.00-0.70 Final [facility] 10^3/mm^3 10^3/mm^3 Hosp ital (Lab): [facility] ? ? WB Normal Ba# 0.00 0.00-0.20 Final [facility] 10^3/mm^3 10^3/mm^3 Hosp ital (Lab): [facility] ? ? WB High Ne% 85 % per 40-74 % Final [facility] 100 WBC per 100 Hospital WBC (Lab): [address] [place] [address] ? ? WB Low Ly% 8 % per 100 19-48 % Final [facility] age WBC per 100 Hospital WBC (Lab): [facility] ? ? WB Normal Mo% 7.1 % per 3.0-10.0 Final [place] [facility] WBC % per 100 Hospit al WBC (Lab): [facility] ? ? WB Low Eo% 0.0 % per 1.0-7.0 % Final [facility] 100 WBC per 100 Hospital WBC (Lab): [address] [place] [address] ? ? WB Normal Ba% 0.0 % per 0.0-2.0 % Final [facility] 100 WBC per 100 Hospital WBC (Lab): [address] [place] [address] 09/13/2018 Type + Screen, S ? Abo A ? Final [facility] Hospital (Lab): [address] [place] [address] ? ? S ? Rh positive ? Final [facility] Hospital (Lab): [address] [place] [address] ? ? S Normal Abs negative negative Final [facility] (Lab): [address] [place] [address] ? ? S ? Id# [id number] [id number] Final [facility] Hospital (Lab): [address] [place] [address] 08/31/2018 Creatinine, Serum P High Creat 1.20 mg/dL 0.55- 1.02 Final [facility] or Plasma mg/dL Hospita l (Lab): [facility] ? ? P ? Egfrnaa 45.98 ? Final [facility] Hospital (Lab): [address] [place] [address] ? ? P ? Egfraa 55.73 ? Final [facility] Hospital (Lab): [address] [place] [address] 08/31/2018 CBC W/ Auto Diff WB Low Wbc 4.3 4.8-10.8 F inal [facility] 10^3/mm^3 10^3/mm^3 Hosp ital (Lab): [address] [place] [address] ? ? WB Normal Rbc 4.37 3.90-5.03 Final [facility] 10^6/mm^3 10^6/mm^3 Hosp ital (Lab): [facility] ? ? WB Low Hgb 11.3 g/dL 12.0-15.5 Final [facility] [place] Hospital (Lab): [address] [place] [address] ? ? WB Normal Hct 36 % 36-46 % Final [facility] Hospital (Lab): [address] [place] [address] ? ? WB Normal Mcv 82.8 fL 81.0-99.0 Final [facility] Hospital (Lab): [address] [place] [address] ? ? WB Low Mch 25.9 pg 33.0-36.0 Final [facility] Hospital (Lab): [address] [place] [address] ? ? WB Low Mchc 31 g/dL 33-36 Final [facility] g/dL Hospital (Lab): [address] [place] [address] ? ? WB High Rdw 14.9 % 11.6-14.8 Final [facility] % Hospital (Lab): [address] [place] [address] ? ? WB Normal Plt 281 150-400 Final [facility] 10^3/mm^3 10^3/mm^3 Hosp ital (Lab): [facility] ? ? WB Normal Ne# 2.46 1.20-6.70 Final [facility] 10^3/mm^3 10^3/mm^3 Hosp ital (Lab): [facility] ? ? WB Low Ly# 1.17 1.20-3.40 Final [facility] 10^3/mm^3 10^3/mm^3 Hosp ital (Lab): [facility] ? ? WB Normal Mo# 0.56 0.11-0.70 Final [facility] 10^3/mm^3 10^3/mm^3 Hosp ital (Lab): [facility] ? ? WB Normal Eo# 0.09 0.00-0.70 Final [facility] 10^3/mm^3 10^3/mm^3 Hosp ital (Lab): [facility] ? ? WB Normal Ba# 0.02 0.00-0.20 Final [facility] 10^3/mm^3 10^3/mm^3 Hosp ital (Lab): [facility] ? ? WB Normal Ne% 57 % per 40-74 % Final [facility] 100 WBC per 100 Hospital WBC (Lab): [address] [place] [address] ? ? WB Normal Ly% 27 % per 19-48 % Final [place] 100 WBC per 100 Hospital WBC (Lab): [address] [place] [address] ? ? WB High Mo% 13.0 % per 3.0-10.0 Final [facility] 100 WBC % per 100 Hospit al WBC (Lab): [address] [place] [address] ? ? WB Normal Eo% 2.1 % per 1.0-7.0 % Final [facility] 100 WBC per 100 Hospital WBC (Lab): [address] [place] [address] ? ? WB Normal Ba% 0.5 % per 0.0-2.0 % Final [facility] 100 WBC per 100 Hospital WBC (Lab): [address] [place] [address] ? ? WB ? [id number] no ? Final [facility] Hospital (Lab): [address] [place] [address] ? ? WB ? Morph? no ? Final [facility] Hospital (Lab): [address] [place] [address] 08/31/2018 Type + Screen, S ? Abo A ? Final [facility] Hospital (Lab): [address] [place] [address] ? ? S ? Rh positive ? Final [facility] Hospital (Lab): [address] [place] [address] ? ? S Normal Abs negative negative Final [facility]Lab): [address] [place] [address] ? ? S ? Id# [id number] [id number] ? Final [facility] Hospital (Lab): [address] [place] [address] 08/31/2018 CMP, Serum or P Normal Na 140 mEq/L 136-145 Fi nal [facility] Plasma mEq/L Hospital (Lab): [address] [place] [address] ? ? P Normal K 3.6 mEq/L 3.5-5.1 Final [facility] e mEq/L Hospital (Lab): [address] [place] [address] ? ? P Normal Cl 104 mEq/L 98-107 Final [facility] mEq/L Hospital (Lab): [address] [place] [address] ? ? P Normal Co2 27 mEq/L 21-32 Final [facility] mEq/L Hospital (Lab): [address] [place] [address] ? ? P ? Agap 13.1 ratio ? Final [facility] (Lab): [address] [place] [address] ? ? P Normal Glu 90.0 mg/dL 70.0-100. Final [facility] 0 mg/dL Hospital (Lab): [address] [place] [address] ? ? P High Bun 19 mg/dL 7-18 Final [facility] mg/dL Hospital (Lab): [address] [place] [address] ? ? P High Creat 1.09 mg/dL 0.55-1.02 Final [facility] mg/dL Hospital (Lab): [address] [place] [address] ? ? P ? Bn/cr 17.1 calc ? Final [facility] Hospital (Lab): [address] [place] [address] ? ? P Normal Ca 8.5 mg/dL 8.5-10.1 Final [facility] ge mg/dL Hospital (Lab): [address] [place] [address] ? ? P Normal Alkp 100 U/L 46-118 Final [facility] U/L Hospital (Lab): [address] [place] [address] ? ? P Normal Alt 25 U/L 14-59 U/L Final [facility] Hospital (Lab): [address] [place] [address] ? ? P Normal Ast 26 U/L 15-37 U/L Final [facility] Hospital (Lab): [address] [place] [address] ? ? P Normal Tbil 0.2 mg/dL <=1.2 Final [facility] mg/dL Hospital (Lab): [address] [place] [address] ? ? P Normal Tp 6.5 g/dL 6.4-8.2 Final [facility] g/dL Hospital (Lab): [address] [place] [address] ? ? P Low Alb 2.6 g/dL 3.4-5.0 Final [facility] g/dL Hospital (Lab): [address] [place] [address] ? ? P ? Glob 9.10 mg/dL ? Final [facility] (Lab): [address] [place] [address] ? ? P ? A/g 0.7 calc ? Final [facility] Hospital (Lab): [address] [place] [address] ? ? P ? Egfraa 62.27 ? Final [facility] Hospital (Lab): [address] [place] [address] ? ? P ? Egfrnaa 51.38 ? Final [facility] Hospital (Lab): [address] [place] [address] 08/31/2018 Carcinoembryonic S Normal Cea 2.3 NG/mL 0.0-3.8 Final [facility] Ag, Quant, Serum NG/mL Hospital or Plasma (Lab): [address] [place] [address] Past Encounters 01/15/2020 Marlon Jones, DO: [address] [place] [address], Ph. 12/26/2019 Marlon Jones, DO: [address] [place] [phone], Ph. 09/04/2019 Marlon Jones, DO: [address] [place] [address], Ph. 06/05/2019 Marlon Jones, DO: [address] [place] [phone], Ph. 03/09/2019 Marlon Jones, DO: [address] [place] [address], Ph. Social History Tobacco Smoking Status Never Smoker Vaccine List None recorded. Plan of Care Reminders Provider Appointments None ? ? recorded. Lab None ? ? recorded. Referral None ? ? recorded. Procedures None ? ? recorded. Surgeries None ? ? recorded. Imaging None ? ? recorded. Vitals 01/15/2020 08:20AM General Surgery F/U 20 min Height Weight BMI Blood Pressure 160.02 cm 12/26/2019 03:45PM General Surgery H&P 40 Height Weight BMI Blood Pressure 160.02 cm 95.25 kg 37.2 kg/m2 106/61 mm[Hg] 09/04/2019 03:25PM General Surgery F/U 20 min Height Weight BMI Blood Pressure 160.02 cm 95.25 kg 37.2 kg/m2 102/64 mm[Hg] 06/05/2019 03:05PM General Surgery F/U 20 min Height Weight BMI Blood Pressure 160.02 cm 96.39 kg 37.6 kg/m2 108/68 mm[Hg] 03/09/2019 04:20PM General Surgery F/U 20 min Height Weight BMI Blood Pressure 160.02 cm 88.45 kg 34.5 kg/m2 106/72 mm[Hg] 12/08/2018 04:15PM General Surgery F/U 20 min Height Weight BMI Blood Pressure 160.02 cm 88.56 kg 34.6 kg/m2 106/70 mm[Hg] 10/17/2018 01:00PM FOLLOW UP Height Weight BMI Blood Pressure 160.02 cm 84.82 kg 33.1 kg/m2 112/70 mm[Hg] 09/27/2018 01:30PM SURGICAL F/U Height Blood Pressure 160.02 cm 114/64 mm[Hg] 08/22/2018 03:15PM FOLLOW UP Height Weight BMI Blood Pressure 160.02 cm 81.65 kg 31.9 kg/m2 108/68 mm[Hg] 08/11/2018 11:00AM H&P Height Weight BMI Blood Pressure 160.02 cm 83.91 kg 32.8 kg/m2 104/70 mm[Hg]
--- NOTE | 2020-08-15 12:04 | W.ED.GENAD ---
Discharge Plan Disposition Patient Disposition: HOME Condition: Stable Discharge Details Clinical Impression: Knee pain Primary Care Provider: Tereza Saez ED Provider: Flo Gilbert Home Meds and New Rx's Prescriptions: New tramadol 50 mg tablet 50 mg PO TID PRNQty: 8 RF: 0 Continued Dulera 100-5 mcg/actuation HFA aerosol inhaler 2 puff Inhalation Q12H PRN RF: 0 celecoxib [Celebrex] 200 mg capsule 200 mg PO DAILY PRN (Reason: shoulder, hip pain) Qty: 30 RF: 0 diclofenac sodium [Voltaren] 1 % gel 4 g topical QID Qty: 100 RF: 1 warfarin 5 mg tablet 5 mg PO DAILY Qty: 100 RF: 3 loratadine 10 mg tablet 10 mg PO DAILY PRNRF: 0 acetaminophen 500 mg tablet 1,000 mg PO Q6H PRNRF: 0 Flovent HFA 44 mcg/actuation HFA aerosol inhaler 88 mcg Inhalation BID Qty: 1 RF: 0 albuterol sulfate 90 mcg/actuation aerosol powdr breath activated 2 inh IH Q4H PRN (Reason: shortness of breath or wheezing) Qty: 1 RF: 0 Discharge Instructions Instructions: Knee Pain (ED) Additional Instructions: Ultrasound was unremarkable for DVT. Wear Simba wrap as needed, advance activity as tolerated. Rest, elevate, cool and/or warm compresses every 2 hours for 20 minutes. Continue igas-xip-eitbbdy Tylenol as directed, add on tramadol. Member tramadol can be addicting, may cause drowsiness and/or constipation. Oqub-wkn-looistp stool softener may be beneficial while taking this medication. Please watch for new or worsening symptoms and return to the ER for any concerns. I have placed you on the orthopedic list. Please contact their office at your convenience to establish outpatient reevaluation. Referrals: Júnior Langston MD [ [facility] STAFF PHYSICIAN] - Medical Decision Making 59-year-old female who tells me that her orthopedic told her to have a knee replacement nearly 5 years ago, has been putting off for as long as possible. Acute on chronic pain now worsening. She needs a referral to orthopedics as well as requesting pain medication. She is specifically concerned about DVT, will obtain ultrasound and check her INR. Will not obtain x-ray imaging as patient reports that she had outpatient films within the last year and a half, known D KISHA. No recent illness or trauma. Clinically she appears well, nontoxic. No evidence of septic joint. INR is 2.6, therapeutic Ultrasound read by radiology as no DVT. Relayed the information back to the patient. She is relieved. Will provide Simba wrap for comfort. She tells me that tramadol has helped well with her discomfort in the past, will give a short-term prescription and orthopedic referral. She will also be placed on the orthopedic list. Medical Records Medical records reviewed: Yes I reviewed the patient's medical records. Lab Data Lab results reviewed: Yes I reviewed the patient's lab results. Lab results narrative: Laboratory Tests Range/Units 08/15/20 12:24 PT (9.3-11.0) sec 26.0 H INR (0.9-1.1) 2.6 H HPI General Mode of arrival: ambulatory. Date/Time Provider Initiated Documentation: 08/15/20 10:29. Limitations to Documentation: no limitations. Information obtained by: patient. HPI Narrative: This is a 59-year-old female with past medical history of depression, PE, chronic anticoagulation, left knee replacement roughly 5 years ago, told that she needed a right knee replacement. She comes in reporting acute on chronic right knee pain no obvious injury or trauma. Denies fever, redness. She reports that the anterior aspect was swollen last night, she elevated in place cool compresses, swelling went down. She has taken umfb-[id number] medication with minimal relief. She is questioning if we can provide additional pain medication for her in the short-term and also rule out a DVT given her history of DVT. Reports the pain is moderate at rest worse with movement or bearing weight. Denies chest pain or shortness of breath. Related Data Home Medications Medication Instructions Recorded Confirmed fluticasone propionate 44 88 mcg INHALATION BID #1 inhaler 10/09/19 08/15/20 mcg/actuation HFA aerosol inhaler albuterol sulfate 90 mcg/actuation 2 inh IH Q4H PRN #1 each 10/10/19 08/15/20 breath activated powder inhaler warfarin 5 mg tablet 5 mg PO DAILY #100 tab 03/21/20 08/15/20 acetaminophen 500 mg tablet 1,000 mg PO Q6H PRN tab 04/04/20 08/15/20 loratadine 10 mg tablet 10 mg PO DAILY PRN tab 04/18/20 08/15/20 celecoxib 200 mg capsule 200 mg PO DAILY PRN #30 cap 05/31/20 08/15/20 diclofenac sodium 1 % topical gel 4 g TOPICAL QID #100 g 05/31/20 08/15/20 mometasone-formoterol HFA 100 2 puff INHALATION Q12H PRN inhaler 05/31/20 08/15/20 mcg-5 mcg/actuation aerosol inhaler tramadol 50 mg PO TID PRN #8 tab 08/15/20 Previous Rx's Medication Instructions Recorded fluticasone propionate 44 88 mcg INHALATION BID #1 inhaler 10/09/19 mcg/actuation HFA aerosol inhaler albuterol sulfate 90 mcg/actuation 2 inh IH Q4H PRN #1 each 10/10/19 breath activated powder inhaler warfarin 5 mg tablet 5 mg PO DAILY #100 tab 03/21/20 celecoxib 200 mg capsule 200 mg PO DAILY PRN #30 cap 05/31/20 diclofenac sodium 1 % topical gel 4 g TOPICAL QID #100 g 05/31/20 tramadol 50 mg PO TID PRN #8 tab 08/15/20 Allergies Allergy/AdvReac Type Severity Reaction Status Date / Time No Known Allergies Allergy Verified 08/15/20 10:34 General Stated Complaint: Orthopedic AARON: 4 Review of Systems Constitutional Constitutional: Denies fever(s) and Denies weakness Cardiovascular Cardiovascular: Denies chest pain and Denies dyspnea Respiratory Respiratory: Denies dyspnea Musculoskeletal Musculoskeletal: Reports arthralgias, Denies numbness, Reports stiffness and Denies tingling Integumentary/Breasts Skin/Breast: Denies erythema and Denies rash Neurologic Neurologic: Denies numbness, Denies tingling and Denies weakness Hematologic/Lymphatic Hematologic/Lymphatic: Reports easy bleeding and Reports easy bruising [facility] Medical History Depression (05/04/14) Impingement syndrome of left shoulder (09/30/17) Cortisone Injection. [facility] (current) use of anticoagulants Started 02/2020 (Originally for thrombophlebitis, prox/close to saph, continued for PE found a day later).. Coum 2' weight. Metatarsalgia of left foot Phlebitis and thrombophlebitis of superficial vessels of left lower extremity [facility] 07/23/20 Ablation left greater saphenous vein-Karen Pulmonary embolism on right Incidental findings, CT ordered by Onco in FU to colon cancer (which, in turn, is viewed as resolved 2' surgery).. 02/2020 Varicose veins of both lower extremities Venous insufficiency of both lower extremities 01/22/20 RFA, Dr Bobby Jones Surgical History Adenocarcinoma of sigmoid colon sigmoid resection laproscopic hand assisted 09/13/18. Flo Jones D.O. [facility] Arthroscopy, Shoulder (01/03/18) Left [facility] Karthik Siddiqui MD Left medial ankle bone spur Open Carpal Tunnel release b/l Replacement of total knee joint (07/22/16) LEFT [facility] Right knee LCL release Status post endovenous radiofrequency ablation (RFA) of saphenous vein 01/13/20 Dr Jones Family History Mother Dementia due to medical condition Father Alzheimer's dementia Social History Smoking/Tobacco Use Status: Never Smoking risk assessment performed?: Yes Alcohol Intake: never Drug use: Never Substance use type: does not use Household members: other Housing: house Number of Children: 0 current occupation: works at [employer] What type of physical activity do you participate in: none Working smoke detector in home: Yes Fire extinguisher in home: Yes Carbon monox detector in home: Yes Do you feel safe at home: Yes Do you feel safe in your relationship?: Yes Exam Const General: cooperative, healthy appearing, comfortable and no acute distress Orientation: alert and awake [facility] Head: normal to inspection, normocephalic and atraumatic Eyes General: appearance normal, both eyes and all related structures Conjunctivae: conjunctivae normal Sclera: sclerae normal Neck Neck: normal visual inspection, full ROM, no meningeal signs, trachea midline and supple Resp Effort & Inspection: normal respiratory effort and able to speak in complete sentences Auscultation: clear to auscultation bilaterally Cardio Rate: regular rate Rhythm: regular rhythm Back/Spine/Pelvis Back: No back tenderness Skin General skin exam: no rashes or lesions noted Neuro General: patient alert, patient awake, moves all extremities and no focal motor deficits Cognition: normal cognition Speech: speech normal Gait: antalgic (Slightly) Sensory Exam: no sensory deficits noted Extrem General: full ROM, capillary refill normal, no pedal edema and no calf tenderness Right lower extremity: full ROM, normal capillary refill and knee Details: normal to inspection, tenderness (Diffuse anterior), normal ROM, knee ligament exam normal and other (Negative Homans' sign); no swelling, no ecchymosis and no crepitus; no edema Psych Appearance: grossly normal Mental Status: mental status grossly normal Course Vital Signs Vital signs: Vital Signs Temperature 36.0 C L 08/15/20 10:32 Pulse 88 08/15/20 10:32 Respiratory Rate 20 08/15/20 10:32 Blood Pressure 146/86 H 08/15/20 10:32 Pulse Oximetry 98 08/15/20 10:32 Temperature 36.0 C L 08/15/20 10:32 Temperature Source Skin 08/15/20 10:32 Pulse 88 08/15/20 10:32 Respiratory Rate 20 08/15/20 10:32 Respiratory Effort Non-Labored 08/15/20 10:36 Blood Pressure 146/86 H 08/15/20 10:32 Blood Pressure Position Sitting 08/15/20 10:32 Pulse Oximetry 98 08/15/20 10:32 Oxygen Delivery Method Room Air 08/15/20 10:32 Oxygen Flow Rate 0 08/15/20 10:32 Pain Level 6 08/15/20 10:37
[2020-08-15 12:40] LABS: INR 2.6 (0.9-1.1)
== END 2020-08-15 13:26 | disposition home or self-care (01) ==
PROVIDERS: Emergency Provider Physician Assistant; PCP Student in an Organized Health Care Education/Training Program
DX: M25.561 Pain in right knee (principal); Z86.718 Personal history of other venous thrombosis and embolism
CPT/HCPCS: 36415; 99284; 85610; 93971

== ENCOUNTER 2020-09-16 13:31 | Outpatient (CLI) | payer BC, SELFPAY ==
--- NOTE | 2020-09-16 13:30 | RT.EKG_ITS ---
APPROVED REPORT Exam: Resting ECG Patient Location: O HR:75 bpm ECG Measurements Heart Rate 75 AXIS OK 145 P 70 QRSd 90 QRS -45 QT 390 T 35 QTc 436 Conclusion Sinus rhythm...normal P axis, V-rate 50- 99 Left anterior fascicular block...axis(240,-40), init forces inf Consider right ventricular hypertrophy...large R or R' V1/V2
== END 2020-09-16 13:32 | disposition home or self-care (01) ==
LOC: DI.CARD 13:32
PROVIDERS: PCP Student in an Organized Health Care Education/Training Program; Visit Provider Internal Medicine Cardiovascular Disease
DX: I44.4 Left anterior fascicular block (principal)
CPT/HCPCS: 93010

== ENCOUNTER 2020-10-07 03:13 | Outpatient (CLI) | payer BC, SELFPAY ==
[2020-10-07 10:53] LABS: HCT 42.1 % (36.0-46.0); HGB 13.6 g/dL (11.2-15.7); MCH 28.9 pg (27.0-33.0); MCHC 32.3 % (32.0-36.0); MCV 89.4 fL (80-95); MPV 8.7 fL (8.0-11.0); Platelet Count 245 10^3/uL (130-400); RBC 4.71 10^6/uL (3.93-5.22); RDW 13.7 % (11.7-14.6); RDW-SD 45.2 fL; WBC 5.03 10^3/uL (4.4-10.8)
[2020-10-07 11:51] LABS: Anion Gap 8.4 mmol/L (3-11); BUN 18 mg/dL (7-18); CO2 28.6 mmol/L (21.0-32.0); Calcium 8.9 mg/dL (8.5-10.1); Chloride 103 mmol/L (98-107); Estimated GFR 56.37 (mL/min/1.73m2); Glucose 110 mg/dL (74-106); Potassium 4.1 mmol/L (3.5-5.1); Sodium 140 mmol/L (136-145)
== END 2020-10-07 03:14 | disposition home or self-care (01) ==
LOC: LBO 03:13
PROVIDERS: PCP Student in an Organized Health Care Education/Training Program; Visit Provider Student in an Organized Health Care Education/Training Program
DX: M25.561 Pain in right knee (principal); M17.11 Unilateral primary osteoarthritis, right knee; Z01.818 Encounter for other preprocedural examination; Z01.812 Encounter for preprocedural laboratory examination
CPT/HCPCS: 36415; 80048; 85027

== ENCOUNTER 2020-10-09 07:33 | Day surgery (SDC) | payer BC, SELFPAY ==
[2020-10-09] VITALS (9 sets, daily range): BP systolic 125–136; BP diastolic 67–92; PULSE 71–78; RESP 12–19; TEMP 36–36.4; O2SAT 95–100
[2020-10-09] MEDS: Acetaminophen 500 MG TAB 1000 MG PO (08:17)
[2020-10-09] MEDS: Celecoxib 200 MG CAP 400 MG PO (08:18)
[2020-10-09] MEDS: Gabapentin 300 MG CAP PO (08:18)
[2020-10-09] MEDS: Lactated Ringers 1,000 ML 80 ML IV (08:25)
[2020-10-09 08:28] LABS: Prothrombin Time 9.9 sec (9.3-11.0)
--- NOTE | 2020-10-09 09:22 | DSE_ITS ---
Date of service: 10/09/20 DS: Diagnosis Discharge Diagnosis (1) Primary osteoarthritis of right knee: Status: Acute Discharge Plan Disposition Patient Disposition: HOME Condition: Good Discharge Details Reason For Visit: Right Knee DJD Attending Provider: Júnior Langston Primary Care Provider: Tereza Saez Home Meds and New Rx's Prescriptions: New celecoxib 200 mg capsule 200 mg PO BID PRN (Reason: pain) Qty: 60 RF: 1 acetaminophen 500 mg tablet 1,000 mg PO Q8H PRN (Reason: pain) Qty: 90 RF: 3 pantoprazole 40 mg tablet,delayed release (DR/EC) 40 mg PO DAILY Qty: 30 RF: 0 docusate sodium [Colace] 100 mg capsule 100 mg PO BID PRNQty: 10 RF: 0 gabapentin 300 mg capsule 300 mg PO QHS Qty: 14 RF: 0 oxycodone 5 mg tablet 5 mg PO Q4H Qty: 18 RF: 0 Continued Dulera 100-5 mcg/actuation HFA aerosol inhaler 2 puff Inhalation Q12H PRN RF: 0 warfarin 5 mg tablet 5 mg PO DAILY Qty: 100 RF: 3 loratadine 10 mg tablet 10 mg PO DAILY PRNRF: 0 Flovent HFA 44 mcg/actuation HFA aerosol inhaler 88 mcg Inhalation BID Qty: 1 RF: 0 albuterol sulfate 90 mcg/actuation aerosol powdr breath activated 2 inh IH Q4H PRN (Reason: shortness of breath or wheezing) Qty: 1 RF: 0 diclofenac sodium [Voltaren] 1 % gel 4 g topical QID Qty: 100 RF: 1 enoxaparin [Lovenox] 100 mg/mL syringe 100 mg SC Q12H Qty: 4 RF: 0 Discontinued tramadol 50 mg tablet 50 mg PO TID PRN (Reason: severe pain (scale score 7-10)) Qty: 12 RF: 0 acetaminophen 500 mg tablet See Rx Instructions PO TID PRNRF: 0 Discharge Instructions Additional Instructions: Total Knee Discharge Instructions Activity: The most important activity is to walk. You should try to take short walks a few times a day. It is important that when resting you work on keeping the knee straight. Avoid putting a pillow behind the knee as this will encourage flexion. Work on range of motion exercises as provided by Physical Therapy. - Start outpatient physical therapy within 2 weeks. - You should wear the TAMI hose on both legs for 2 weeks. You may remove these at night. You may also use any compression sock in place of the TAMI hose. Dressing: You may remove the Simba wrap on your leg 2 days after your surgery and put on the TAMI stocking given to you from the hospital. Keep the surgical dressing (underneath the SIMBA wrap) in place for at least one week. After the first week it may be removed and replaced with light gauze and tape or nothing. The wound and dressing may get wet after 3 days but avoid soaking the dressing or otherwise it will need to be changed. Many people prefer covering the dressing with cling wrap (saran wrap) to minimize it from getting soaked. If it gets wet, just pat dry. If it starts to peel off then it will need to be changed. Medications: - You should take Tylenol and anti-inflammatory Celebrex as your primary pain control medications. If the Celebrex is too expensive or not covered, please call the office for another alternative (Advil/Ibuprofen or Naproxen/Aleve). The Celebrex (and any anti-inflammatory) does increase your risk of an adverse bleeding event since you are on Coumadin and being bridged with Lovenox. If you notice any oozing from your wound or any blood or color changes to your sputum or stool, please stop the Celebrex and contact your PCP or Dr. Langston. - You have been prescribed a stronger pain medication Oxycodone for breakthrough pain, take as needed as prescribed. - You have also been prescribed a stomach acid reduction agent Pantoprozole to help reduce stomach acid and reflux. - You have been prescribed Gabapentin to take at night for restlessness and nerv e pain. - You will be taking Coumadin for DVT prevention. You will resume your home dose of Coumadoin starting on the night of surgery. You will need to have your INR checked in 3-5 days to check on your blood thinness. You should use the Lovenox for the first 2 days (100mg twice a day) to bridge until the Coumadin is in effect. - If you have constipation you should take Colace or Miralax (both [id number]). It takes most people 3-4 days to have a bowel movement. Follow-up: 2 weeks. INR check within 3-[address] Dr[address] Saez. If you have any acute concerns or questions, please do not hesitate to contact the office at [phone]. You may contact Dr. Langston with any questions after hours through the hospital at [phone] or on his cell phone at [phone]. 1. Encounter Date and Reason I certify that YUAN MATAMOROS was seen by Júnior Langston MD on 10/09/20 and that I had a [id number] encounter with this patient that meets the physician face to face encounter requirements. 2. Clinical Findings Supporting Skilled Need and Homebound Status I certify that home health services are medically necessary, include either intermittent retirement and/or physical/speech therapy, and that this patient is homebound in that absences from the home require considerable and taxing effort and are infrequent or of short duration, or are attributable to the need to receive medical care. [X] (a) Attached documentation from encounter provides clinical findings supporting skilled need and homebound status (including what assistance patient requires to leave the home). The encounter with the patient was in whole, or in part, for the following medical condition, which is the primary reason for home health care: Right Knee DJD Long-Term: Physical Therapy: Yuan would benefit from home physical therapy to assist with recovery from knee replacement. She has notable weakness and range of motion limitations which limit her ambulatory capacity. Please focus on obtaining independent ambulation with assistive device as well as working on knee extension and flexion. She is weight bearing as tolerated without restrictions. She also will need INR checks to be done until she is back in her regular range of INR and her home dose of Coumadin. The first INR check should be done within 3-5 days of surgery. Speech Therapy: Homebound: Yuan is unable to leave her home unassisted. She has significant limitations with ambulation and weakness. 3. Certification and Authentication I certify that I composed the above information based on my clinical judgement relating to this patient's medical condition and, if applicable, clinical findings communicated to me by the NPP or inpatient physician who performed the Home Health Referral. All further orders will be obtained through Dr. Saez (INR) and Dr. Langston. Referrals: Júnior Langston MD [ [facility] STAFF PHYSICIAN] - Equipment/Supplies: Walker Activity:: Activity as Tolerated Shower/Bathe:: 72 hours Diet:: As Tolerated Discharge Orders Discharge Orders: Discharge Order (Routine); Ordered 10/09/20 Ordered By: Júnior Langston DS: Summary Time Spent with Patient providing and/or coordinating discharge services: Less than 30 minutes Status at Discharge Functional status at discharge: uses cane/walker Overall status at discharge: patient is progressing back to baseline Mental Status: mental status grossly normal Speech and Movement: speech and movement normal Mood: congruent mood Affect: normal affect Exam Psych Mental Status: mental status grossly normal Speech and Movement: speech and movement normal Mood: congruent mood Affect: normal affect DS: Data Vitals/I&O Vitals and I&O: Vital Signs Temperature 36.4 C L 10/09/20 08:11 Pulse 78 10/09/20 08:11 Pulse Rhythm Regular 10/09/20 08:11 Respiratory Rate 18 10/09/20 08:11 Respiratory Depth Normal 10/09/20 08:11 Blood Pressure 136/81 10/09/20 08:11 Pulse Oximetry 99 10/09/20 08:11 Oxygen Delivery Method Room Air 10/09/20 08:11 Oxygen Flow Rate 0 10/09/20 08:11 Pain Level 8 10/09/20 08:11 Intake & Output 10/08/20 10/08/20 10/09/20 11:59 23:59 11:59 Weight 88.8 kg Data Completed and Pending Labs on day of discharge: Labs from last 24 hours 10/09/20 08:05 PT 9.9 INR 1.0 [facility] Medical History Depression (05/04/14) Impingement syndrome of left shoulder (09/30/17) Cortisone Injection. [facility] (current) use of anticoagulants Started 02/2020 (Originally for thrombophlebitis, prox/close to saph, continued for PE found a day later).. Coum 2' weight. Metatarsalgia of left foot Phlebitis and thrombophlebitis of superficial vessels of left lower extremity s/p ablation (Yolette Jones [facility], 02/2020) 07/23/20 Ablation left greater saphenous vein-Karen Pulmonary embolism on right Incidental findings, CT ordered by Onco in FU to colon cancer (which, in tur n, is viewed as resolved 2' surgery).. 02/2020 Varicose veins of both lower extremities Venous insufficiency of both lower extremities 01/22/20 RFA, Dr Bobby Jones Surgical History Adenocarcinoma of sigmoid colon sigmoid resection laproscopic hand assisted 09/13/18. Flo Jones D.O. [facility] Arthroscopy, Shoulder (01/03/18) Left [facility] Karthik Siddiqui MD Hx of colonoscopy Left medial ankle bone spur Open Carpal Tunnel release b/l Replacement of total knee joint (07/22/16) LEFT [facility] Right knee LCL release Status post endovenous radiofrequency ablation (RFA) of saphenous vein 01/13/20 Dr Jones Family History Mother Dementia due to medical condition Father Alzheimer's dementia Social History Smoking/Tobacco Use Status: Never Smoking risk assessment performed?: Yes Alcohol Intake: never Drug use: Never Substance use type: does not use Household members: other Housing: house Number of Children: 0 current occupation: works at [employer] What type of physical activity do you participate in: none Working smoke detector in home: Yes Fire extinguisher in home: Yes Carbon monox detector in home: Yes Do you feel safe at home: Yes Do you feel safe in your relationship?: Yes
[2020-10-09] MEDS: ceFAZolin 2 GM/50 ML BAG IVPB (09:25)
[2020-10-09] MEDS: Normal Saline 20 ML VIAL (10:30)
[2020-10-09] MEDS: Ketorolac 30 MG/ML VIAL (10:30)
[2020-10-09] MEDS: Bupivacaine 0.25% Pres-Free 30 ML VIAL (10:30)
--- NOTE | 2020-10-09 10:56 | W.PM.OP ---
Date of service: 10/09/20 Time of Service: 10:56 Operative Note Operative Note DATE OF PROCEDURE: 10/09/20 PRE-OP DIAGNOSIS: Right Knee Osteoarthritis POST-OP DIAGNOSIS: same PROCEDURE: Right Total Knee Replacement SURGEON: Júnior Langston REINSURANCE CLAIM ANALYST: Sriram Saeed ANESTHESIA TYPE: General LMA/ETT Refer to Anesthesia Record ESTIMATED BLOOD LOSS: 300 PATHOLOGY: none sent TOURNIQUET TIME: 0 COMPLICATIONS: None Patient was transported to: PACU Patient's condition: stable Implants: 1. Depuy Attune Cementless Cruciate Retaining Femoral Component, Size 4 Narrow 2. Depuy Attune Cementless Rotating Platform Tibial Component, Size 3 3. Depuy Attune 4x7mm CR/RP Poly 4. Depuy Attune Patellar Component, Size 35mm Indications: I have seen Emily in clinic for symptoms of knee arthritis, confirmed with radiographic findings. Emily has exhausted nonoperative methods and was having significant limitations in daily function and desired better function and less pain. I discussed the technical details of a knee replacement. She had knee replacement performed elsewhere on the left side with good results. I explained the risks of the procedure to include, but not limited to, bleeding, infection, pain, stiffness, fracture, damage to nerves and vessels, damage to muscles and tendons, loosening, need for repeat procedure, blood clot and cardiopulmonary demise. Despite these risks, Emily elected to proceed. Findings: There was significant signs of arthritis throughout the knee, most focused in the medial and patellofemoral spaces. Procedure Description: Emily was greeted in the preoperative holding area where the correct side was identified and marked. The consent was reviewed with the patient and signed. The history and physical was updated. All questions were answered. Preoperative medications were administered: Acetaminophen 1000mg, Celebrex 400mg, and Gabapentin 300mg. An adductor canal block was then administered by the anesthesia team in the PACU. Emily was taken back to the operating room. A spinal anesthestic was attempted but unsuccessful. The patient was placed into the supine position on the operating room table. A nonsterile tourniquet was placed high onto the leg but only used for cementing. Posts were placed for positioning during the procedure. All bony prominences were well padded. Prophylactic antibiotics in the form of Cefazolin were administered. 1g of Tranxemic Acid was given intravenously within 30 minutes of incision. The right leg was then prepped with Chloraprep and draped in a standard fashion with impervious stockinette. A second prep with Chloraprep was performed prior to application of Iodine impregnated skin protection. A timeout to confirm correct identity, side and site, procedure, allergies, anesthesia, and medical concerns was performed. With the knee in some flexion, a midline incision was made overlying the knee. Full thickness skin flaps were raised once the extensor mechanism was encountered. These were raised medially and laterally. Any bleeding was controlled with electrocautery. Once the extensor mechanism was fully exposed, a medial parapatellar arthrotomy was performed in a flexed position. All bleeding from the arthrotomy and the geniculate arteries was coagulated. A medial subperiosteal peel was performed with electrocautery to the midcoronal plane. The fat pad was removed while keeping the patellar tendon protected. The anterior distal femur synovium was removed for later visualization. The ACL and PCL were resected and the anterior horn of the lateral meniscus was transected. The knee was then flexed with the patella translated but was difficult to missy. Using a step drill, and based on preoperative templating, the femoral canal was entered. This was done with a step drill without any difficulty. The intramedullary distal femoral cut guide was inserted, set to a 5 degree valgus cut and 9mm cut thickness. The distal femoral cut guide was then held in position and pinned. With the soft tissues protected, the distal cut was performed. This was passed over a few times to ensure a planar cut. I then turned attention to the tibia. The extramedullary guide was placed onto the leg. The distal aspect was slid medial to adjust for position of center of ankle and stay in line with shaft of the tibia. Approximately 3-5 degrees of posterior slope was kept in the proximal cutting guide. The center of the guide was aligned with the PCL. The stylus was used to assess cut thickness. The medial side, most involved side, was set for a 3mm cut, corresponding to 8mm laterally. This was then held in position and pinned into place with 2 additional pins and a cross pin for stability. The medial and lateral collateral ligaments were protected and the cut was performed. With this completed, it was assessed and noted to be of appropriate dimensions. The guide was removed. A spacer block was inserted and the knee was brought into extension. The 7mm spacer block provided full extension, without hyperextension and with stability of both the medial and lateral collateral ligaments was assessed. The pins from the femur and the tibia were then removed. The distal femur was then sized. The anterior stylus was placed onto the lateral ridge of the anterior femur. This indicated a size 4 narrow femur. The external rotation of the guide was adjusted to 3 degrees to match the epicondylar axis, perpendicular to Derick?s line. The 4-in-1 cutting guide was the placed. The posterior medial femur cut was evaluated and appeared of good thickness. The spacer block was inserted underneath the cutting guide and stability was confirmed in 90 degrees of flexion. An luba wing was used to confirm appropriate position of the anterior cut to avoid notching. This cutting guide was ensured to be flush on the cut surface and then pinned into place with headed pins. While protecting the soft tissues, quad tendon, and collateral ligaments, the anterior and posterior cuts were performed with a saw. The central two pins were removed and the posterior and anterior chamfers were cut next. The notch-cutting guide was placed. This was pinned to lateralize the femoral component as much as possible while keeping it flush on the cut surface. This was then pinned into position. A reciprocating saw was used to make the notch cut. A rasp smoothed the cut surfaces. The medial and lateral menisci were removed. A trial femoral component was then inserted, impacted down to the cut surfaces, and the lug holes were drilled. A provisional trial tibial component was placed and the knee was brought through range of motion. There was noted to be excellent extension and flexion. There was no significant instability. The patella was tracking without thumbs. A size 7mm polyethylene component provided the best range of motion and stability with less than 2mm gapping with medial and lateral stress and full extension without significant hyperextension. The tibial cut surface was fully exposed. The tibia was then sized as a 3. The tibia had been previously marked during trialing to correspond to the center of the tibial component to help with rotation. The trial was aligned to this sriram, approximately rotated to the medial 1/3rd of the tibial tubercle. The trial was pinned into place. The tibia was prepared with a reamer and a keel punch and lug holes. The knee was then brought into extension and the patella was measured as 21mm. Using the patellar clamp and cut guide, this was resected to a flat surface with at least 13mm of thickness remaining. The size 35 patella fit the best. This was oriented and then clamped into position. The lugs were drilled. The trial components were removed. The final components were opened on the back table. The periosteal and capsular tissues, especially posteriorly, around the knee were then systematically injected with a periarticular cocktail consisting of 50cc 0.25% Marcaine, 30mg Ketorolac, 20cc of Exparal and 50cc of injectable saline. The knee was thoroughly irrigated with a pulse lavage and dried. Irrisept was also used to irrigate the tissues. On the back table, with the implants opened, the cement was mixed. One batch of high viscosity cement was prepared with vacuum assistance. After the cement was ready a small amount was placed on the cut surface of the patella and the patellar button was clamped into position and held. While the cement was hardening, the cementless knee components were placed. Starting with the tibial component, the tibia was subluxed anteriorly and the lug holes of the component were lined up. The tibia was then impacted with an impactor and mallet until the tibial component was in contact with the tibia. The final polyethylene component was inserted. Then, the femoral component was inserted. The lug holes were aligned and the component was impacted into position. The knee was irrigated with Irrisept chlorhexadine solution. This was allowed to sit in the knee for 3 minutes. After the cement had finally cured, approximately 15min, the clamp was removed from the patella and the knee was taken through range of motion. The patella was tracking with a no-thumbs technique. The capsule was then reapproximated with a No. 1 Vicryl at multiple locations. The capsule was finally closed with a No. 2 Stratafix, barbed suture. The second dosing of 1g TXA was started. Deep tissues were then reapproximated with 0 Vicryl and 2-0 Vicryl. The skin was closed with a running 3-0 Monocryl in a subcuticular fashion. This was reinforced with skin glue. A Mepilex silver dressing was applied along with a [id number] DOMENIC wrap. A CryoCuff was applied. Emily was transferred to the hospital bed without difficulty an suffering no apparent complication. Emily has a good prognosis. Physical therapy will start today and without restrictions, weight-bearing as tolerated. She will return to Coumadin for her DVT prophylaxis.
[2020-10-09] MEDS: Normal Saline Flush 10 ML SYR IV (12:02)
[2020-10-09] MEDS: HYDROmorphone 2 MG/ML VIAL IVP (12:02)
--- NOTE | 2020-10-09 13:18 | IN_ITS ---
Date of service: 10/09/20 Time of Service: 13:18 PT Notes Visit Reasons: Right Knee DJD Physical Therapy Day Surgery Initial Evaluation Date: 10/09/2020 Referring Doctor: Júnior Langston MD PT Orders: PT CONSULT: S/P Ortho surgery Precautions: WBAT on R LE with AD. Patient Profile/Admitting Diagnosis: Emily is a 59-year-old female with primary osteoarthritis of the right knee is status post right total knee arthroplasty on postoperative day 0. PMHX: Medical History Depression (05/04/14) Impingement syndrome of left shoulder (09/30/17) Cortisone Injection. [facility] (current) use of anticoagulants Started 02/2020 (Originally for thrombophlebitis, prox/close to saph, continued for PE found a day later).. Coum 2' weight. Metatarsalgia of left foot Phlebitis and thrombophlebitis of superficial vessels of left lower extremity [facility] 07/23/20 Ablation left greater saphenous vein-[facility]aren Pulmonary embolism on right Incidental findings, CT ordered by [facility] in FU to colon cancer (which, in turn, is viewed as resolved 2' surgery).. 02/2020 Varicose veins of both lower extremities Venous insufficiency of both lower extremities 01/22/20 RFA, Dr Bobby Jones Surgical History Adenocarcinoma of sigmoid colon sigmoid resection laproscopic hand assisted 09/13/18. Flo Jones D.O. [facility] Arthroscopy, Shoulder (01/03/18) Left [facility] Karthik Siddiqui MD Left medial ankle bone spur Open Carpal Tunnel release b/l Replacement of total knee joint (07/22/16) LEFT [facility] Right knee LCL release Status post endovenous radiofrequency ablation (RFA) of saphenous vein 01/13/20 Dr Jones Social History/Home Situation: Lives with family members in a private home with a ramp to enter. Has a flight of steps that lead to her basement. Equipment Owned/DME: [employer] Subjective: Agreeable to PT consult. Indicates that she has people who can help her at home as needed. Reports pain in R knee at 3/10 at rest and with movement. Amenable to having HH PT come in and monitor her PT/INR. States that she does not need to negotiate stairs as she has some people who can go down the basement for her as needed. Objective: General Observation: Cryocuff on R knee. DOMENIC wraps to R knee. IV access in R UE. TEDS in L leg. Mental Status: Alert and oriented x4 Pain: 3/10 at rest and with movement ROM: Right Lower Extremity: Is able to flex hip to about 20 degrees while seated at edge of bed. Hip abduction WFL. Knee flexion 20 degrees to 90 degrees. Knee extension -20 degrees. Ankle dorsiflexion up to 10 degrees beyond neutral. Ankle plantarflexion WFL. Left Lower Extremity: Hip flexion WFL. Hip abduction WFL. Knee flexion 10 degrees to 100 degrees. Ankle dorsiflexion up to 10 degrees beyond neutral. Ankle plantarflexion WFL. Strength: Right Lower Extremity: Hip flexors 3-/5. Hip abductors 4-/5. Knee flexors 3-/5. Knee extensors 3-/5. Ankle dorsiflexors 3-/5. Ankle plantarflexors 4/5. Left Lower Extremity: Hip flexors 4/5. Hip abductors 4/5. Knee flexors 3-/5. Knee extensors 3-/5. Ankle dorsiflexors 3-/5. Ankle plantarflexors 5/5 . Sensation: Intact and light touch in bilateral lower extremities. Bed Mobility/Transfers: Supine to sit standby assist Sit to stand standby assist Stand to sit standby assist Bed to chair standby assist Gait: Guided patient through level surface ambulation of about 200 feet using front wheeled walker with decreased katia, wide base of support, and report of pain in the right knee at 4/10. Balance: Static Sitting: Normal Dynamic Sitting: Normal Static Standing: Fair Dynamic Standing: Fair Special Tests: Mobility Limitations Standardized Measure [facility] 6 clicks Basic Mobility Inpatient Short Form: Raw Score: 22 CMS Score: 21% deficit Informed Consent/Education: Patient instructed in purpose of PT consult. Packet containing left TKA exercise protocol has been given to patient. Education and training on initial set of exercises that can be done at home have been completed with patient. Assessment: And requires the use of a front wheel walker for all mobility ADL performance in order to maximize independence and fall risk at home. She will have adequate support as she recovers at home. She will benefit from home health PT in order to provide stair negotiation training and exercise progression. Patient presents with clinical signs and symptoms consistent with current/admitting diagnoses that have resulted to mobility limitations, gait instability, and generalized weakness as demonstrated by the following impairment level findings: 1. Decreased strength to right knee major muscle groups 2. Impaired standing balance 3. Limitation of joint range of motion in right and left knee knee Impairments are contributing to the following functional limitations: 1. Inability to safely ambulate without assistive device 2. Increase completion time for mobility ADL performance 3. Increased fall risk Patient is assessed as a 29660 moderate complexity complexity based on the following: History: 59-year-old female with impairment level findings, functional limitations, and past medical history as indicated above Examination: Demonstrable impairment in strength, balance, and mobility level with underlying impairments and functional limitations as documented above Presentation: Evolving Decision Makin moderate complexity Goals: N/A. PT evaluation and 1-2 treatment sessions only for functional mobility training using recommended AD and for HEP instruction. Plan of Care/Treatment Plan: N/A. PT evaluation and 1-2 treatment session only for functional mobility training using recommended AD and for HEP instruction. PT INTERVENTION RECEIVED TODAY: Assessment for and fitting of appropriate assistive device. Guided patient through bed mobility, transfers, and mobility ADL performance on level surfaces using front wheeled walker. Educated and trained patient on HEP performance to maximize post-surgical functional outcomes. Education on the use of Cryocuff device. DISCHARGE RECOMMENDATIONS: Home when medically cleared by orthopedic surgeon. Home health PT to assess home safety and progress mobility and exercise performance. TREATMENT CODE/TIME: 83457 x 25 minutes, 94368 x 13 minutes beginning at 13:18 PM. Thank you for the opportunity to participate in the care of this patient. Rosa Elena Melchor PT, DPT, CLT [facility] [place], [place]
--- NOTE | 2020-10-09 14:35 | PTTR_ITS ---
Date of service: 10/09/20 Time of Service: 14:05 PT Notes Visit Reasons: Right Knee DJD Inpatient Physical Therapy Treatment Note [facility] Date: 10/09/2020 PRECAUTIONS: Fall, WBAT R SUBJECTIVE: Emily reports that she is feeling good. She is pleasant and agreeable to participating in PT. OBJECTIVE: PAIN: Patient c/o pulling sensation in anterior thigh with ther ex BED MOBILITY/TRANSFERS Sit-stand: S Stand-sit: S GAIT Assistive Device: FWW Weight bearing: WBAT R Assist: S Distance: 100' Deviation: Slow pace, wide JOSHUA, minimal knee flexion THEREX: Patient was instructed in a LE strengthening program, performed in a se ated position, as per flow sheet. She was issued a HEP, which was reviewed. ASSESSMENT: Patient tolerated session well without complaint. She demonstrates good understanding of LE strengthening HEP. PLAN: Continue with general strengthening and mobilization via PT upon discharge. TREATMENT CODE/TIME: 25 minutes; 01100, 08247 (14:05)
--- NOTE | 2020-10-09 15:32 | PDOC.CMPRO ---
- If Service Date Differs Date of service: 10/09/20 Time of Service: 15:32 Care Management Progress Note Emily underwent right total knee replacement surgery today. At the request of Dr. Langston, coordinates a referral to [facility] for PT and protime INR.
== END 2020-10-09 15:32 | disposition home or self-care (01) ==
PROVIDERS: PCP Student in an Organized Health Care Education/Training Program; Visit Provider Student in an Organized Health Care Education/Training Program
PROC: (CPT 27447; principal; 2020-10-09 09:30)
DX: M17.11 Unilateral primary osteoarthritis, right knee (principal); J45.909 Unspecified asthma, uncomplicated; Z86.711 Personal history of pulmonary embolism; K21.9 Gastro-esophageal reflux disease without esophagitis; Z79.01 Long term (current) use of anticoagulants
CPT/HCPCS: 27447; 76942; 97110; 97162; 97530; NC; 85610; J0690; J1100; J1885; J2001; J2250; J2405; J2704; J3010

== ENCOUNTER 2020-10-11 14:25 | Outpatient (REF) | payer BC, SELFPAY ==
[2020-10-11 16:52] LABS: INR 1.2 (0.9-1.1); PTT Activated 22.8 sec (21.0-27.5); Prothrombin Time 11.7 sec (9.3-11.0)
== END 2020-10-11 14:26 | disposition home or self-care (01) ==
LOC: LBN 14:25
PROVIDERS: PCP Student in an Organized Health Care Education/Training Program; Visit Provider Student in an Organized Health Care Education/Training Program
DX: I80.02 Phlebitis and thrombophlebitis of superficial vessels of left lower extremity (principal); Z79.01 Long term (current) use of anticoagulants; Z47.1 Aftercare following joint replacement surgery; Z96.651 Presence of right artificial knee joint
CPT/HCPCS: 85610; 85730

== ENCOUNTER 2020-10-14 22:00 | Outpatient (REF) | payer BC, SELFPAY ==
[2020-10-14 21:26] LABS: INR 1.4 (0.9-1.1); Prothrombin Time 14.3 sec (9.3-11.0)
== END 2020-10-14 22:01 | disposition home or self-care (01) ==
LOC: LBN 22:00
PROVIDERS: PCP Student in an Organized Health Care Education/Training Program; Visit Provider Student in an Organized Health Care Education/Training Program
DX: I80.02 Phlebitis and thrombophlebitis of superficial vessels of left lower extremity (principal); Z79.01 Long term (current) use of anticoagulants; Z47.1 Aftercare following joint replacement surgery; Z96.651 Presence of right artificial knee joint
CPT/HCPCS: 85610

== ENCOUNTER 2020-10-17 09:35 | Outpatient (REF) | payer BC, SELFPAY ==
[2020-10-17 10:36] LABS: INR 1.8 (0.9-1.1); Prothrombin Time 17.5 sec (9.3-11.0)
== END 2020-10-17 09:36 | disposition home or self-care (01) ==
LOC: LBN 09:35
PROVIDERS: PCP Student in an Organized Health Care Education/Training Program; Visit Provider Student in an Organized Health Care Education/Training Program
DX: I80.02 Phlebitis and thrombophlebitis of superficial vessels of left lower extremity (principal); Z96.651 Presence of right artificial knee joint; Z47.1 Aftercare following joint replacement surgery; Z79.01 Long term (current) use of anticoagulants
CPT/HCPCS: 85610

== ENCOUNTER 2020-10-19 13:20 | Outpatient (REF) | payer BC, SELFPAY ==
[2020-10-19 13:47] LABS: Prothrombin Time 21.7 sec (9.3-11.0)
[2020-10-19 13:52] LABS: INR 2.2 (0.9-1.1)
== END 2020-10-19 13:21 | disposition home or self-care (01) ==
LOC: LBN 13:20
PROVIDERS: PCP Student in an Organized Health Care Education/Training Program; Visit Provider Student in an Organized Health Care Education/Training Program
DX: I80.02 Phlebitis and thrombophlebitis of superficial vessels of left lower extremity (principal); Z47.1 Aftercare following joint replacement surgery; Z79.01 Long term (current) use of anticoagulants; Z96.651 Presence of right artificial knee joint
CPT/HCPCS: 85610

== ENCOUNTER 2020-10-24 10:02 | Outpatient (CLI) | payer BC, SELFPAY ==
--- NOTE | 2020-10-24 09:30 | DI.RAD_ITS ---
EXAM: XR STANDING ALIGNMENT CLINICAL HISTORY: 1ST POST OP R TKA. TECHNIQUE: 2D digital imaging was performed. COMPARISON: Prior x-rays 08/22/2020 FINDINGS: There has been interval placement of a right knee prosthesis appears to be in satisfactory position. Left knee prosthesis also again noted. Hips unremarkable. Degenerative changes in the ankle joints noted. IMPRESSION: DATA REPOSITORY: RADIATION DOSE DELIVERED:
--- NOTE | 2020-10-24 10:06 | DI.RAD_ITS ---
EXAM: XR KNEE RT 1V CLINICAL HISTORY: 1ST POST OP R TKA. TECHNIQUE: 2D digital imaging was performed. COMPARISON: CR XR KNEE STANDING ALIGNMENT AP LAT [place] SKYLINE RIGHT from 08/22/2020 FINDINGS: Single lateral view reveals satisfactory position alignment of the components of the recently placed right knee prosthesis. There has also been patellar resurfacing. IMPRESSION: DATA REPOSITORY: RADIATION DOSE DELIVERED:
== END 2020-10-24 10:03 | disposition home or self-care (01) ==
LOC: DIORS 10:02
PROVIDERS: PCP Student in an Organized Health Care Education/Training Program; Referring Provider Student in an Organized Health Care Education/Training Program; Visit Provider Student in an Organized Health Care Education/Training Program
DX: Z96.651 Presence of right artificial knee joint (principal)
CPT/HCPCS: 73560; 77073

== ENCOUNTER 2020-11-06 02:04 | Outpatient (CLI) | payer BC, SELFPAY ==
--- NOTE | 2020-11-06 | DI.CT_ITS ---
EXAM: CT CHEST/ABD/PEL W CLINICAL HISTORY: SIGMOID COLON CA,C18.7.SURVEILLANCE. TECHNIQUE: Imaging Protocol: Axial computed tomography images with coronal and sagittal reformatted images were created and reviewed CONTRAST MATERIAL: Intravenous: Omnipaque 350 Contrast volume:100 ml Oral: Yes COMPARISON: CT CT CHEST/ABD/PEL W from 02/28/2020 FINDINGS: CHEST: LUNGS:. There are no significant focal right lung findings. In the left lung there is a 3 millimeter nodule again noted in the superior segment of the left lower lobe, unchanged. New additional nodule s in either lung field. No pleural effusions. There are no significant focal findings in the trache a and mainstem bronchi. MEDIASTINUM: There is no hilar nor mediastinal adenopathy. Visualized thyroid unremarkable. CARDIAC: Heart size is normal. There is no pericardial effusion.Caliber of the thoracic aorta is wit hin normal limits. OSSEOUS: No significant osseous lesions.. ABDOMEN: There is no ascites. LIVER: There are no discrete focal hepatic lesions identified. GALLBLADDER/BILIARY: No obvious gallbladder pathology. CBD is not dilated. PANCREAS: No new significant pancreatic findings. Pancreas appears unchanged. SPLEEN: Spleen is not enlarged. There are no intrasplenic lesions. Splenic and portal veins are dickerson nt. ADRENALS: There are no significant adrenal masses. KIDNEYS: No calculi nor hydronephrosis. No solid renal masses. No cysts evident. ABDOMINAL AORTA: Abdominal aorta is not enlarged. LYMPH NODES: There is no retroperitoneal nor paraaortic adenopathy. ABDOMINAL WALL/GI: There are now multiple subcutaneous densities over both sides the anterior abdomin al wall. Largest of these on the right-sided measures 5.5 cm wide by 2.3. Cm. There is overlying s kin thickening. These are probably injection sites for anticoagulants. There is evidence of sys par tial sigmoid resection. No inflammatory findings nor obstruction at this level. There is no free fl uid in the pelvis. PELVIS: LYMPH NODES: There is no intrapelvic nor inguinal adenopathy. GI: No evidence of appendicitis.No evidence of sigmoid diverticulitis. URINARY BLADDER: Are wall is uniformly thickened. REPRODUCTIVE: Uterus size is age-appropriate. There are small cysts in both ovaries noted. Similar to previous OSSEOUS: Schmorl's node invagination evident in superior endplate of L2 vertebral body. Multilevel c hronic degenerative disc disease. No lytic osseous lesions. IMPRESSION: 1. Stable appearance of the partial sigmoid resection site. No obstruction or abscess at this level. 2. No evidence of metastatic disease in the abdomen and pelvis. No ascites. 3. Stable 3 millimeter left lung nodule, unchanged from previous and doubtful for metastatic disease. No intrathoracic adenopathy. No pleural effusions. 4. There are multiple subcutaneous densities on both sides the anterior abdominal wall now evident. The largest of these is to the right of center measuring 5.5 centimeters wide by 2.3 centimeters AP. These are most probably related to anticoagulants ejection sites. There is some overlying in thicke joshua. Correlation with any clinical signs of infection recommended. There are no gas bubbles seen w ithin these subcutaneous findings RADIATION DOSE DELIVERED: 1,646.22mGy.cm Total DLP DATA REPOSITORY: All CT scans at this facility are submitted to the National Radiology Data Registry (NRDR) Dose Index Registry (DIR) with the [employer] (A[employer]). RADIATION OPTIMIZATION: All CT scans at this facility use at least one of these dose optimization te chniques: automated exposure control; mA and/or kV adjustment per patient size (includes targeted exa ms where dose is matched to clinical indication); or iterative reconstruction.
[2020-11-06 09:24] LABS: Abs Immature Grans 0.01 10^3/uL (0.0-0.06); Absolute Basophil Count 0.03 10^3/uL (0.0-0.2); Absolute Eosinophil Count 0.31 10^3/uL (0.0-0.7); Absolute Monocyte Count 0.29 10^3/uL (0.1-0.8); Absolute Neutrophil Count 2.33 10^3/uL (1.2-6.7); Basophils % 0.7; Eosinophils % 7.3; HCT 36.4 % (36.0-46.0); HGB 11.7 g/dL (11.2-15.7); Immature Grans % 0.2; Lymphocytes % 30.4; MCH 29.1 pg (27.0-33.0); MCHC 32.1 % (32.0-36.0); MCV 90.5 fL (80-95); MPV 8.7 fL (8.0-11.0); Monocytes % 6.8; Neutrophils % 54.6; Nucleated RBC 0 %; Platelet Count 232 10^3/uL (130-400); RBC 4.02 10^6/uL (3.93-5.22); RDW 14.2 % (11.7-14.6); RDW-SD 47.2 fL; WBC 4.27 10^3/uL (4.4-10.8)
[2020-11-06 09:31] LABS: ALT 23 U/L (14-59); AST 24 U/L (15-37); Albumin 2.7 g/dL (3.4-5.0); Alkaline Phosphatase 114 U/L (46-116); Anion Gap 6.6 mmol/L (3-11); BUN 16 mg/dL (7-18); Bilirubin, Total 0.3 mg/dL (0.2-1.0); CO2 29.4 mmol/L (21.0-32.0); CREATININE 0.9 mg/dL (0.55-1.02); Calcium 8.4 mg/dL (8.5-10.1); Chloride 106 mmol/L (98-107); Glucose 99 mg/dL (74-106); Potassium 4.4 mmol/L (3.5-5.1); Sodium 142 mmol/L (136-145); Total Protein 6.6 g/dL (6.4-8.2)
[2020-11-06] MEDS: Normal Saline - Diluent 50 ML VIAL IV (10:26)
[2020-11-06] MEDS: Breeza Beverage 473 ML BTL PO (10:27)
[2020-11-06 17:30] LABS: CEA <0.5 ng/mL (See Note)
== END 2020-11-06 02:24 ==
PROVIDERS: PCP Student in an Organized Health Care Education/Training Program; Visit Provider Internal Medicine Hematology & Oncology
DX: C18.7 Malignant neoplasm of sigmoid colon (principal); R91.1 Solitary pulmonary nodule; R93.89 Abnormal findings on diagnostic imaging of other specified body structures
CPT/HCPCS: 74177; 80053; 71260; 82378; 85025

== ENCOUNTER 2021-04-03 01:32 | Outpatient (CLI) | payer BC, SELFPAY ==
--- NOTE | 2021-04-03 09:00 | DI.RAD_ITS ---
Exam(s) XR KNEE RT 3V AP,LAT,SRIKANTH EXAM: XR KNEE RT 3V AP,LAT,SRIKANTH CLINICAL HISTORY: evaluate for fluid,KNEE PAIN,M25.569. TECHNIQUE: 2D digital imaging was performed. COMPARISON: CR XR STANDING ALIGNMENT from 10/24/2020 CR XR KNEE RT 1V from 10/24/2020 CR XR STANDING ALIGNMENT from 10/24/2020 FINDINGS: There is stable position alignment of the femoral component of the prosthesis. Possible loosening of the tibial component, laterally when compared to the images of 10/24/2020. This is on the lateral a spect of the tibial component Correlation with clinical findings recommended. IMPRESSION: DATA REPOSITORY: RADIATION DOSE DELIVERED:
== END 2021-04-03 01:52 ==
PROVIDERS: PCP Student in an Organized Health Care Education/Training Program; Visit Provider Student in an Organized Health Care Education/Training Program
DX: M25.561 Pain in right knee (principal); Z96.651 Presence of right artificial knee joint
CPT/HCPCS: 73562

== ENCOUNTER 2021-04-04 02:50 | Outpatient (CLI) | payer BC, SELFPAY ==
[2021-04-04 14:41] LABS: Abs Immature Grans 0.01 10^3/uL (0.0-0.06); Absolute Basophil Count 0.01 10^3/uL (0.0-0.2); Absolute Eosinophil Count 0.03 10^3/uL (0.0-0.7); Absolute Lymphocyte Count 1.44 10^3/uL (1.2-3.4); Absolute Monocyte Count 0.35 10^3/uL (0.1-0.8); Basophils % 0.2; Eosinophils % 0.6; HCT 41.7 % (36.0-46.0); HGB 13.3 g/dL (11.2-15.7); Immature Grans % 0.2; Lymphocytes % 27.5; MCH 27.9 pg (27.0-33.0); MCHC 31.9 % (32.0-36.0); MCV 87.4 fL (80-95); MPV 8.9 fL (8.0-11.0); Monocytes % 6.7; Neutrophils % 64.8; Nucleated RBC 0 %; Platelet Count 245 10^3/uL (130-400); RBC 4.77 10^6/uL (3.93-5.22); RDW 13.1 % (11.7-14.6); RDW-SD 41.5 fL; WBC 5.24 10^3/uL (4.4-10.8)
[2021-04-04 16:09] LABS: ALT 22 U/L (14-59); AST 21 U/L (15-37); Albumin 3.1 g/dL (3.4-5.0); Alkaline Phosphatase 97 U/L (46-116); BUN 14 mg/dL (7-18); Bilirubin, Total 0.5 mg/dL (0.2-1.0); CREATININE 0.9 mg/dL (0.55-1.02); Calcium 8.4 mg/dL (8.5-10.1); Chloride 103 mmol/L (98-107); Glucose 115 mg/dL (74-106); Potassium 3.5 mmol/L (3.5-5.1); Sodium 139 mmol/L (136-145); Total Protein 6.3 g/dL (6.4-8.2)
[2021-04-07 10:02] LABS: CEA <2.0 ng/mL (See Note)
== END 2021-04-04 02:51 | disposition home or self-care (01) ==
LOC: LBO 02:50
PROVIDERS: PCP Student in an Organized Health Care Education/Training Program; Visit Provider Internal Medicine Hematology & Oncology
DX: C18.7 Malignant neoplasm of sigmoid colon (principal)
CPT/HCPCS: 36415; 80053; 82378; 85025

== ENCOUNTER 2021-06-30 15:31 | Outpatient (CLI) | payer BC, SELFPAY ==
--- NOTE | 2021-06-30 15:15 | DI.RAD_ITS ---
Exam(s) XR KNEE RT 2V AP,LAT EXAM: XR KNEE RT 2V AP,LAT CLINICAL HISTORY: follow up. TECHNIQUE: 2D digital imaging was performed. COMPARISON: CR XR KNEE RT 3V AP,LAT,SRIKANTH from 04/03/2021 FINDINGS: Stable alignment components prosthesis previously described horizontal lucency subjacent to lateral t ibial plateau is unchanged. No new lucencies. Prepatellar soft tissue swelling again noted, unchanged IMPRESSION: DATA REPOSITORY: RADIATION DOSE DELIVERED:
== END 2021-06-30 15:32 | disposition home or self-care (01) ==
LOC: DIORS 15:31
PROVIDERS: PCP Student in an Organized Health Care Education/Training Program; Referring Provider Student in an Organized Health Care Education/Training Program; Visit Provider Physician Assistant Surgical
DX: Z96.651 Presence of right artificial knee joint (principal)
CPT/HCPCS: 73560

== ENCOUNTER 2021-07-03 02:34 | Outpatient (CLI) | payer BC, SELFPAY ==
[2021-07-03 15:12] LABS: ESR 5 mm/hr (0-30)
[2021-07-03 17:19] LABS: C-Reactive Protein 0.05 mg/dL (0.0-0.3)
== END 2021-07-03 02:35 | disposition home or self-care (01) ==
LOC: LBO 02:34
PROVIDERS: Physician Assistant Surgical; PCP Student in an Organized Health Care Education/Training Program; Visit Provider Student in an Organized Health Care Education/Training Program
DX: Z96.651 Presence of right artificial knee joint (principal)
CPT/HCPCS: 36415; 85652; 86140

== ENCOUNTER 2021-11-11 00:45 | Outpatient (CLI) | payer BC, SELFPAY ==
[2021-11-11 09:00] LABS: Abs Immature Grans 0.01 10^3/uL (0.0-0.06); Absolute Basophil Count 0.02 10^3/uL (0.0-0.2); Absolute Eosinophil Count 0.07 10^3/uL (0.0-0.7); Absolute Monocyte Count 0.32 10^3/uL (0.1-0.8); Absolute Neutrophil Count 3.37 10^3/uL (1.2-6.7); Basophils % 0.4; Eosinophils % 1.3; HCT 42.3 % (36.0-46.0); HGB 13.4 g/dL (11.2-15.7); Immature Grans % 0.2; Lymphocytes % 28.4; MCH 28.1 pg (27.0-33.0); MCHC 31.7 % (32.0-36.0); MCV 88.7 fL (80-95); MPV 8.8 fL (8.0-11.0); Neutrophils % 63.7; Platelet Count 244 10^3/uL (130-400); RBC 4.77 10^6/uL (3.93-5.22); RDW 12.7 % (11.7-14.6); RDW-SD 41.5 fL; WBC 5.29 10^3/uL (4.4-10.8)
[2021-11-11 09:18] LABS: ALT 25 U/L (14-59); AST 20 U/L (15-37); Albumin 2.8 g/dL (3.4-5.0); Alkaline Phosphatase 97 U/L (46-116); Anion Gap 6.5 mmol/L (3-11); BUN 16 mg/dL (7-18); Bilirubin, Total 0.5 mg/dL (0.2-1.0); CO2 29.5 mmol/L (21.0-32.0); CREATININE 0.9 mg/dL (0.55-1.02); Calcium 8.3 mg/dL (8.5-10.1); Chloride 103 mmol/L (98-107); Glucose 100 mg/dL (74-106); Potassium 3.6 mmol/L (3.5-5.1); Sodium 139 mmol/L (136-145); Total Protein 6.7 g/dL (6.4-8.2)
[2021-11-11] MEDS: Omnipaque 350 MG/ML 50 ML BTL PO (09:26)
[2021-11-11] MEDS: Omnipaque 350 MG/ML 100 ML BTL IJ (11:28)
[2021-11-11] MEDS: Breeza Beverage 473 ML BTL 950 ML PO (11:28)
--- NOTE | 2021-11-11 11:31 | DI.CT_ITS ---
Exam(s) CT CHEST/ABD/PEL W EXAM: CT CHEST/ABD/PEL W CLINICAL HISTORY: COLON CANCER C18.7 NO METS SURVELLANCE. TECHNIQUE: Imaging Protocol: Axial computed tomography images with coronal and sagittal reformatted images were created and reviewed CONTRAST MATERIAL: Intravenous: Omnipaque 350 Contrast volume:100 ml Oral: Yes. Oral contrast was also administered for bowel COMPARISON: CT CT CHEST/ABD/PEL W from 11/06/2020 FINDINGS: CHEST: LUNGS: The previously described 3 millimeter nodule superior segment of the lower is again unchanged. There are no new pulmonary nodules, infiltrates, or pleural effusions. No new findings in the trac hea and mainstem bronchi.. MEDIASTINUM: There is no hilar nor mediastinal adenopathy. Visualized thyroid unremarkable. CARDIAC: Heart size is normal. There is no pericardial effusion.Caliber of the thoracic aorta is wit hin normal limits. OSSEOUS: No significant osseous lesions.. ABDOMEN: There is no ascites. LIVER: There are no focal hepatic lesions nor dilatation of intrahepatic ducts. GALLBLADDER/BILIARY: No obvious gallbladder pathology. CBD is not dilated. PANCREAS: No evidence of pancreatic mass nor dilatation of the pancreatic duct. SPLEEN: Spleen is not enlarged. There are no intrasplenic lesions. Splenic and portal veins are dickerson nt. ADRENALS: There are no significant adrenal masses. KIDNEYS: No calculi nor hydronephrosis. No solid renal masses. No cysts evident. ABDOMINAL AORTA: Abdominal aorta is not enlarged. LYMPH NODES: There is no retroperitoneal nor paraaortic adenopathy. ABDOMINAL WALL: No evidence of significant anterior abdominal wall nor inguinal hernia. GI: Again noted is anastomotic suture line in sigmoid from partial sigmoid resection this appears unc hanged from October 2020. No obstruction at this level. No inflammatory changes. Free air. No free fluid. No significant sigmoid diverticular disease. No small bowel obstruction. PELVIS: The previously present subcutaneous densities are no presently less prominent. No drainable subcutan eous fluid collection. LYMPH NODES: There is no intrapelvic nor inguinal adenopathy. GI: No evidence of appendicitis.No evidence of sigmoid diverticulitis. URINARY BLADDER: Mild uniform thickening of the urinary bladder is again noted although the slightly less than 1 year ago. No diverticuli. No discrete focal masses nor calculi. REPRODUCTIVE: Uterus size is age-appropriate. There is an unchanged cyst in the right ovary measurin g 1.2 x 1.1 cm. Left ovary unremarkable. No free fluid. OSSEOUS: No significant osseous lesions. Chronic multilevel degenerative disc disease and mild degen erative anterolisthesis L4 upon L5 related to facet arthropathy. IMPRESSION: 1. Compared to October 2020 there is continued stable appearance of partial sigmoid resection site. No new mass, fluid, or abscess at this level. No bowel obstruction. 2. No evidence metastatic disease in the chest, abdomen, and pelvis. No ascites. 3. Continued stable solitary 3 millimeter nodule in the superior segment of the left lower lobe. Zhou btful for metastatic disease. No new nodules, pleural effusions, nor intrathoracic adenopathy. 4. Previously described subcutaneous densities have decreased in size and number. These were probabl y prior injection sites. RADIATION DOSE DELIVERED: 1,701.25mGy.cm Total DLP DATA REPOSITORY: All CT scans at this facility are submitted to the National Radiology Data Registry (NRDR) Dose Index Registry (DIR) with the [employer] (ACR). RADIATION OPTIMIZATION: All CT scans at this facility use at least one of these dose optimization te chniques: automated exposure control; mA and/or kV adjustment per patient size (includes targeted exa ms where dose is matched to clinical indication); or iterative reconstruction.
[2021-11-11 19:06] LABS: CEA <0.5 ng/mL (See Note)
== END 2021-11-11 01:05 ==
PROVIDERS: Internal Medicine Hematology & Oncology; PCP Student in an Organized Health Care Education/Training Program; Visit Provider Nurse Practitioner Family
DX: C18.7 Malignant neoplasm of sigmoid colon (principal); R91.1 Solitary pulmonary nodule; N83.291 Other ovarian cyst, right side; Z90.49 Acquired absence of other specified parts of digestive tract
CPT/HCPCS: 74177; 80053; 71260; 82378; 85025; J3490; Q9967

== ENCOUNTER 2022-05-28 02:59 | Outpatient (CLI) | payer BC, SELFPAY ==
[2022-05-28 15:23] LABS: Abs Immature Grans 0.01 10^3/uL (0.0-0.06); Absolute Basophil Count 0.02 10^3/uL (0.0-0.2); Absolute Eosinophil Count 0.05 10^3/uL (0.0-0.7); Absolute Monocyte Count 0.38 10^3/uL (0.1-0.8); Basophils % 0.4; HGB 11.7 g/dL (11.2-15.7); Immature Grans % 0.2; MCH 27.5 pg (27.0-33.0); MCHC 31.6 % (32.0-36.0); MCV 87 fL (80-95); MPV 8.7 fL (8.0-11.0); Monocytes % 7.4; Platelet Count 272 10^3/uL (130-400); RBC 4.25 10^6/uL (3.93-5.22); RDW 12.4 % (11.7-14.6); RDW-SD 39.4 fL; WBC 5.16 10^3/uL (4.4-10.8)
[2022-05-28 16:06] LABS: ALT 21 U/L (14-59); AST 22 U/L (15-37); Albumin 2.9 g/dL (3.4-5.0); Alkaline Phosphatase 94 U/L (46-116); Anion Gap 8.6 mmol/L (3-11); BUN 17 mg/dL (7-18); Bilirubin, Total 0.3 mg/dL (0.2-1.0); CO2 26.4 mmol/L (21.0-32.0); CREATININE 0.9 mg/dL (0.55-1.02); Calcium 8.7 mg/dL (8.5-10.1); Chloride 105 mmol/L (98-107); Estimated GFR 71.83 (mL/min/1.73m2); Glucose 94 mg/dL (74-106); Potassium 3.5 mmol/L (3.5-5.1); Sodium 140 mmol/L (136-145); Total Protein 6.6 g/dL (6.4-8.2)
[2022-05-29 22:08] LABS: CEA <0.5 ng/mL (See Note)
== END 2022-05-28 03:00 | disposition home or self-care (01) ==
LOC: LBO 02:59
PROVIDERS: PCP Student in an Organized Health Care Education/Training Program; Visit Provider Internal Medicine Hematology & Oncology
DX: C18.7 Malignant neoplasm of sigmoid colon (principal)
CPT/HCPCS: 36415; 80053; 82378; 85025

== ENCOUNTER 2022-07-28 04:02 | Outpatient (CLI) | payer BC, SELFPAY ==
[2022-07-28 15:15] LABS: HCT 40.5 % (36.0-46.0); HGB 12.9 g/dL (11.2-15.7); MCH 27.5 pg (27.0-33.0); MCHC 31.9 % (32.0-36.0); MCV 86 fL (80-95); MPV 8.5 fL (8.0-11.0); Platelet Count 262 10^3/uL (130-400); RBC 4.69 10^6/uL (3.93-5.22); RDW 13.3 % (11.7-14.6); RDW-SD 41.1 fL; WBC 8.29 10^3/uL (4.4-10.8)
[2022-07-28 15:55] LABS: Anion Gap 6.3 mmol/L (3-11); BUN 20 mg/dL (7-18); CO2 28.7 mmol/L (21.0-32.0); CREATININE 1.1 mg/dL (0.55-1.02); Calcium 8.8 mg/dL (8.5-10.1); Chloride 107 mmol/L (98-107); Estimated GFR 56.46 (mL/min/1.73m2); Glucose 101 mg/dL (74-106); Potassium 3.7 mmol/L (3.5-5.1); Sodium 142 mmol/L (136-145); TSH (W/Ref FT4) 1.21 uIU/mL (0.36-3.74)
== END 2022-07-28 04:03 | disposition home or self-care (01) ==
LOC: LBO 04:02
PROVIDERS: PCP Student in an Organized Health Care Education/Training Program; Visit Provider Student in an Organized Health Care Education/Training Program
DX: C18.7 Malignant neoplasm of sigmoid colon (principal); I83.813 Varicose veins of bilateral lower extremities with pain; F32.9 Major depressive disorder, single episode, unspecified; R53.83 Other fatigue; R79.89 Other specified abnormal findings of blood chemistry
CPT/HCPCS: 36415; 80048; 85027; 84443

== ENCOUNTER 2022-08-11 02:07 | Outpatient (CLI) | payer BC, SELFPAY ==
--- NOTE | 2022-08-11 16:00 | DI.MAMMO_ITS ---
Exam(s) MAMMO SCREENING EXAM: MAMMO SCREENING CLINICAL HISTORY: screening,Z12.39. TECHNIQUE: Bilateral full field digital CC and MLO mammographic images were obtained with 3D tomosyn thesis and utilizing computer aided detection (CAD). COMPARISON: Prior mammograms were reviewed. FINDINGS: There has been no significant change in the appearance and distribution of the fibroglandular tissue. There are no CAD designations. There are no new spiculated masses nor malignant appearing microcalcification groups. There is no significant architectural distortion nor skin thickening-retraction. IMPRESSION: No radiographic evidence of malignancy. BI-RADS Category 1 - Negative Breast Density - Category B - Scattered areas of fibroglandular density Breast density Category C or D implies that the patient has dense breast tissue. Dense breast tissue can make it harder to find cancer on a mammogram. Dense breast tissue is also associated with an incr eased risk of breast cancer. This information about the result of the mammogram report was provided to the patient to raise their awareness. Use this report when you speak with the patient about their risks for breast cancer, which includes their family history. At that time, you may recommend additional screening tests (Ultrasoun d or MRI) as these tests may add significant information. A negative radiographic report should not delay biopsy if a dominant or clinically suspicious mass is present. Up to ten percent of cancers are not identified on mammography. A negative report may reinforce clinical impression. Adenosis and dense breasts may obscure an underlying neoplasm. False positive reports average 6 to 10%. Patient will receive a letter notifying them of these results.
== END 2022-08-11 02:27 ==
LOC: DI 02:09
PROVIDERS: PCP Student in an Organized Health Care Education/Training Program; Visit Provider Student in an Organized Health Care Education/Training Program
DX: Z12.31 Encounter for screening mammogram for malignant neoplasm of breast (principal); R92.8 Other abnormal and inconclusive findings on diagnostic imaging of breast
CPT/HCPCS: 77063; 77067

== ENCOUNTER 2022-09-24 03:00 | Outpatient (CLI) | payer BC, SELFPAY ==
[2022-09-24 13:59] LABS: ALT 25 U/L (14-59); AST 23 U/L (15-37); Albumin 2.9 g/dL (3.4-5.0); Alkaline Phosphatase 112 U/L (46-116); Anion Gap 6.9 mmol/L (3-11); BUN 17 mg/dL (7-18); Bilirubin, Total 0.3 mg/dL (0.2-1.0); CO2 30.1 mmol/L (21.0-32.0); Calcium 8.7 mg/dL (8.5-10.1); Chloride 103 mmol/L (98-107); Glucose 125 mg/dL (74-106); Potassium 3.8 mmol/L (3.5-5.1); Sodium 140 mmol/L (136-145); Total Protein 6.7 g/dL (6.4-8.2)
== END 2022-09-24 03:01 | disposition home or self-care (01) ==
LOC: LBO 03:01
PROVIDERS: PCP Student in an Organized Health Care Education/Training Program; Visit Provider Student in an Organized Health Care Education/Training Program
DX: I10 Essential (primary) hypertension (principal); R73.9 Hyperglycemia, unspecified; E87.8 Other disorders of electrolyte and fluid balance, not elsewhere classified; E46 Unspecified protein-calorie malnutrition
CPT/HCPCS: 36415; 80053; 83036

== ENCOUNTER 2022-12-04 11:53 | Outpatient (CLI) | payer BC, SELFPAY ==
[2022-12-04 11:26] LABS: Abs Immature Grans 0.01 10^3/uL (0.0-0.06); Absolute Basophil Count 0.02 10^3/uL (0.0-0.2); Absolute Eosinophil Count 0.08 10^3/uL (0.0-0.7); Absolute Lymphocyte Count 1.87 10^3/uL (1.2-3.4); Absolute Monocyte Count 0.54 10^3/uL (0.1-0.8); Absolute Neutrophil Count 4.48 10^3/uL (1.2-6.7); Basophils % 0.3; Eosinophils % 1.1; HGB 13.6 g/dL (11.2-15.7); Immature Grans % 0.1; Lymphocytes % 26.7; MCH 27.8 pg (27.0-33.0); MCHC 32.4 % (32.0-36.0); MCV 86 fL (80-95); MPV 8.5 fL (8.0-11.0); Monocytes % 7.7; Neutrophils % 64.1; Platelet Count 264 10^3/uL (130-400); RBC 4.89 10^6/uL (3.93-5.22); RDW 13.1 % (11.7-14.6); RDW-SD 40.2 fL
[2022-12-04 11:50] LABS: ALT 23 U/L (14-59); AST 23 U/L (15-37); Albumin 2.9 g/dL (3.4-5.0); Alkaline Phosphatase 110 U/L (46-116); BUN 12 mg/dL (7-18); Bilirubin, Direct 0.1 mg/dL (0.0-0.2); Bilirubin, Total 0.4 mg/dL (0.2-1.0); Calcium 8.8 mg/dL (8.5-10.1); Chloride 105 mmol/L (98-107); Glucose 102 mg/dL (74-106); Potassium 3.6 mmol/L (3.5-5.1); Sodium 140 mmol/L (136-145); Total Protein 6.9 g/dL (6.4-8.2)
[2022-12-04 12:04] LABS: Calculated LDL 190 mg/dL (<100); Cholesterol 284 mg/dL (<200); HDL Cholesterol 68 mg/dL (40-60); Triglyceride 131 mg/dL (<150)
== END 2022-12-04 11:54 | disposition home or self-care (01) ==
LOC: LBO 11:54
PROVIDERS: PCP Student in an Organized Health Care Education/Training Program; Visit Provider Student in an Organized Health Care Education/Training Program
DX: R10.31 Right lower quadrant pain (principal); R79.89 Other specified abnormal findings of blood chemistry; R82.998 Other abnormal findings in urine; M54.59 Other low back pain; B99.8 Other infectious disease; Z85.038 Personal history of other malignant neoplasm of large intestine
CPT/HCPCS: 36415; 80048; 80061; 80076; 85025

== ENCOUNTER 2023-01-04 02:20 | Outpatient (CLI) | payer BC, SELFPAY ==
--- NOTE | 2023-01-04 | DI.CT_ITS ---
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 TECHNIQUE: Imaging Protocol: Axial computed tomography images with coronal and sagittal reformatted images were created and reviewed CONTRAST MATERIAL: Intravenous: Omnipaque 350 Contrast volume:100 ml Oral: Yes. Oral contrast was also administered for bowel opacification. COMPARISON: CT CT CHEST/ABD/PEL W from 11/11/2021. CT scan of October 2020. FINDINGS: CHEST: LUNGS: Previously described solitary small nodule in the left lower lobe is again noted, measuring 3- 4 millimeters, unchanged. There are no new pulmonary nodules, infiltrates, nor pleural effusions. N o findings in the trachea and mainstem bronchi.. MEDIASTINUM: There is no hilar nor mediastinal adenopathy. Partially visualized thyroid appears unrem arkable. CARDIAC: Heart size is normal. There is no pericardial effusion.Caliber of the thoracic aorta is wit hin normal limits. OSSEOUS: No significant osseous lesions.. ABDOMEN: There is no ascites. LIVER: There are no focal hepatic lesions nor dilatation of intrahepatic ducts. GALLBLADDER/BILIARY: No obvious gallbladder pathology. CBD is not dilated. PANCREAS: No evidence of pancreatic mass nor dilatation of the pancreatic duct. SPLEEN: Spleen is not enlarged. There are no intrasplenic lesions. Splenic and portal veins are dickerson nt. ADRENALS: There are no significant adrenal masses. KIDNEYS: No calculi nor hydronephrosis. No solid renal masses. No cysts evident. ABDOMINAL AORTA: Abdominal aorta is not enlarged. LYMPH NODES: There is no retroperitoneal nor paraaortic adenopathy. ABDOMINAL WALL: No evidence of significant anterior abdominal wall nor inguinal hernia. GI: Again noted is anastomosis in the sigmoid from partial sigmoid resection. No evidence of focal a bnormality at this level. No obstruction above this level.Free air. No free fluid. No abscess. PELVIS: LYMPH NODES: There is no intrapelvic nor inguinal adenopathy. GI: No evidence of appendicitis.No evidence of sigmoid diverticulitis. URINARY BLADDER: No calculi nor masses evident. Mild uniform thickening of the bladder wall is uncha nged. REPRODUCTIVE: Uterus size upper normal. There is a cyst in the right ovary which measures 1.4 x 1.1 cm. Is not significantly increased in size from CT scan of 11/11/2021. Left ovary unremarkable. OSSEOUS: No significant osseous lesions. No fractures.. Multilevel chronic degenerative disc disease. IMPRESSION: 1. There is continued stable appearance of the solitary 3-4 millimeter nodule in the superior segment of the left lower lobe, doubtful for metastatic disease. There are no other pulmonary nodules nor p leural effusions and there is no intrathoracic adenopathy. 2. Continued stable unremarkable appearance of a partial sigmoid resection site. 3. Stable appearance of small cyst in the right ovary with measurements as above. No free fluid. 4. No evidence of metastatic disease in the chest, abdomen, and pelvis. RADIATION DOSE DELIVERED: 1,446.55mGy.cm Total DLP DATA REPOSITORY: All CT scans at this facility are submitted to the National Radiology Data Registry (NRDR) Dose Index Registry (DIR) with the [employer] (ACR). RADIATION OPTIMIZATION: All CT scans at this facility use at least one of these dose optimization te chniques: automated exposure control; mA and/or kV adjustment per patient size (includes targeted exa ms where dose is matched to clinical indication); or iterative reconstruction.
[2023-01-04 07:38] LABS: Abs Immature Grans 0.01 10^3/uL (0.0-0.06); Absolute Basophil Count 0.02 10^3/uL (0.0-0.2); Absolute Eosinophil Count 0.09 10^3/uL (0.0-0.7); Absolute Lymphocyte Count 1.69 10^3/uL (1.2-3.4); Absolute Monocyte Count 0.32 10^3/uL (0.1-0.8); Basophils % 0.4; Eosinophils % 1.7; HCT 43.1 % (36.0-46.0); Immature Grans % 0.2; Lymphocytes % 32.3; MCH 27.8 pg (27.0-33.0); MCHC 32.5 % (32.0-36.0); MCV 86 fL (80-95); MPV 8.4 fL (8.0-11.0); Monocytes % 6.1; Neutrophils % 59.3; Platelet Count 252 10^3/uL (130-400); RBC 5.04 10^6/uL (3.93-5.22); RDW 13.2 % (11.7-14.6); RDW-SD 40.5 fL; WBC 5.23 10^3/uL (4.4-10.8)
[2023-01-04] MEDS: Barium Sulfate 2% W/V-Berry Smoothie 450 ML BTL PO ×2 (07:43→07:44)
[2023-01-04 07:53] LABS: ALT 27 U/L (14-59); AST 25 U/L (15-37); Alkaline Phosphatase 106 U/L (46-116); Anion Gap 4.9 mmol/L (3-11); BUN 18 mg/dL (7-18); Bilirubin, Total 0.5 mg/dL (0.2-1.0); CO2 31.1 mmol/L (21.0-32.0); CREATININE 0.9 mg/dL (0.55-1.02); Calcium 8.7 mg/dL (8.5-10.1); Chloride 103 mmol/L (98-107); Estimated GFR 71.39 (mL/min/1.73m2); Glucose 102 mg/dL (74-106); Magnesium 2.1 mg/dL (1.8-2.4); Potassium 3.6 mmol/L (3.5-5.1); Sodium 139 mmol/L (136-145); Total Protein 7.1 g/dL (6.4-8.2)
[2023-01-04] MEDS: Normal Saline - Diluent 50 ML VIAL IJ (09:09)
[2023-01-04] MEDS: Omnipaque 350 MG/ML 500 ML BTL-Imaging package IJ (09:12)
[2023-01-04 19:48] LABS: CEA <0.5 ng/mL (See Note)
== END 2023-01-04 02:40 ==
LOC: DI 02:20
PROVIDERS: PCP Student in an Organized Health Care Education/Training Program; Visit Provider Internal Medicine Hematology & Oncology
DX: Z91.89 Other specified personal risk factors, not elsewhere classified; C18.7 Malignant neoplasm of sigmoid colon; Z85.038 Personal history of other malignant neoplasm of large intestine; R91.1 Solitary pulmonary nodule; N83.291 Other ovarian cyst, right side
CPT/HCPCS: 74177; 80053; 71260; 82378; 83735; 85025

== ENCOUNTER 2023-01-04 13:45 | Outpatient (CLI) | payer BC, SELFPAY ==
--- NOTE | 2023-01-04 07:37 | DI.RAD_ITS ---
Exam(s) XR FINGER RT MIDDLE EXAM: XR FINGER RT MIDDLE CLINICAL HISTORY: Evaluate distal joint for possible mucoid cyst,ganglion,m67.40. TECHNIQUE: 2D digital imaging was performed. COMPARISON: No exams were available for comparison FINDINGS: 3 views No evidence of fracture nor subluxations. Significant degenerative changes the wrist radiocarpal faisal nt, most evident at the radiolunate articulation level. Also at the interphalangeal joint of the amparo mb and PIP joint of the 4th-ring finger. With regards to the 3rd-middle finger, there is no evidence of fracture nor degenerative changes. Th ere is, however, a dorsal soft tissue swelling at the level of the proximal aspect of the distal phal anx. This soft tissue swelling does not contain radiopaque foreign body nor calcifications therein. The subjacent DIP joint exhibits mild degenerative changes. IMPRESSION: 1. Focal soft tissue swelling over the dorsal aspect of the distal 3rd finger, as described above. 2. Multilevel degenerative changes as described above. No erosions evident. DATA REPOSITORY: RADIATION DOSE DELIVERED:
== END 2023-01-04 14:05 ==
LOC: DI 13:46
PROVIDERS: PCP Student in an Organized Health Care Education/Training Program; Visit Provider Student in an Organized Health Care Education/Training Program
DX: R22.31 Localized swelling, mass and lump, right upper limb; M19.041 Primary osteoarthritis, right hand
CPT/HCPCS: 73140

== ENCOUNTER 2023-01-08 01:56 | Outpatient (CLI) | payer BC, SELFPAY ==
[2023-01-08 11:35] LABS: Anion Gap 6.2 mmol/L (3-11); BUN 15 mg/dL (7-18); CO2 28.8 mmol/L (21.0-32.0); CREATININE 0.9 mg/dL (0.55-1.02); Calcium 8.4 mg/dL (8.5-10.1); Chloride 104 mmol/L (98-107); Estimated GFR 71.39 (mL/min/1.73m2); Glucose 98 mg/dL (74-106); Potassium 3.9 mmol/L (3.5-5.1); Sodium 139 mmol/L (136-145)
== END 2023-01-08 01:57 | disposition home or self-care (01) ==
LOC: LBO 01:56
PROVIDERS: PCP Student in an Organized Health Care Education/Training Program; Referring Provider Student in an Organized Health Care Education/Training Program; Visit Provider Student in an Organized Health Care Education/Training Program
DX: R79.89 Other specified abnormal findings of blood chemistry (principal); T50.2X5A Adverse effect of carbonic-anhydrase inhibitors, benzothiadiazides and other diuretics, initial encounter; Z91.89 Other specified personal risk factors, not elsewhere classified
CPT/HCPCS: 36415; 80048

== ENCOUNTER 2023-02-05 12:15 | Outpatient (CLI) | payer BC, SELFPAY ==
--- NOTE | 2023-02-05 09:30 | DI.RAD_ITS ---
Exam(s) XR ANKLE RT COMPLETE EXAM: XR ANKLE RT COMPLETE CLINICAL HISTORY: Ankle sprain, S93.409A, evaluate joint space, r/o Fx. TECHNIQUE: 2D digital imaging was performed. COMPARISON: No exams were available for comparison FINDINGS: 3 views Soft tissue swelling noted around the ankle. No evidence of acute fracture or widening of the ankle mortise. There are advanced osteoarthritic degenerative changes in the tibiotalar joint with advanced joint sp susana narrowing and actual invagination of the medial aspect of the talar dome into the tibial plafond. There are also degenerative subarticular cysts on both sides the joint. Subtalar joint exhibits only minimal degenerative change. Moderate size inferior calcaneal spur is noted. There also degenerative changes in the midfoot. 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 DATA REPOSITORY: RADIATION DOSE DELIVERED:
--- NOTE | 2023-02-05 10:02 | DI.RAD_ITS ---
Exam(s) XR FINGER LT INDEX EXAM: XR FINGER LT INDEX CLINICAL HISTORY: Lt finger pain, M79.645, evaluate joint space. TECHNIQUE: 2D digital imaging was performed. COMPARISON: CR XR FINGER RT MIDDLE from 01/04/2023 FINDINGS: 3 views No evidence of acute fracture or dislocation. There is significant degenerative changes in the PIP joints of the 2nd and 4th fingers. No erosions evident. Degenerative subarticular cysts noted. Metacarpophalangeal joints exhibit minimal degenera tive change. DIP joints unremarkable. No radiopaque foreign bodies. IMPRESSION: Degenerative changes at the proximal interphalangeal joints of the 2nd index and 4th-ring fingers. A lso degenerative change in the interphalangeal joint of the ipsilateral from. Also significant degen erative change in the radiocarpal joint of the wrist. DATA REPOSITORY: RADIATION DOSE DELIVERED:
== END 2023-02-05 12:35 ==
PROVIDERS: PCP Student in an Organized Health Care Education/Training Program; Visit Provider Student in an Organized Health Care Education/Training Program
DX: M19.042 Primary osteoarthritis, left hand (principal); M19.032 Primary osteoarthritis, left wrist
CPT/HCPCS: 73140; 73610

== ENCOUNTER 2023-05-06 16:53 | Outpatient (CLI) | payer BC, SELFPAY ==
[2023-05-06 16:41] LABS: Anion Gap 4.8 mmol/L (3-11); BUN 21 mg/dL (7-18); CO2 29.2 mmol/L (21.0-32.0); Calcium 9.2 mg/dL (8.5-10.1); Chloride 103 mmol/L (98-107); Estimated GFR 62.91 (mL/min/1.73m2); Glucose 85 mg/dL (74-106); Potassium 3.9 mmol/L (3.5-5.1); Sodium 137 mmol/L (136-145)
== END 2023-05-06 16:54 | disposition home or self-care (01) ==
LOC: LBO 16:54
PROVIDERS: PCP Student in an Organized Health Care Education/Training Program; Visit Provider Student in an Organized Health Care Education/Training Program
DX: Z79.899 Other long term (current) drug therapy (principal); Z91.89 Other specified personal risk factors, not elsewhere classified; Z86.2 Personal history of diseases of the blood and blood-forming organs and certain disorders involving the immune mechanism
CPT/HCPCS: 36415; 80048; 85018

== ENCOUNTER → 2023-05-27 01:05 | Outpatient (CLI) | payer BC, SELFPAY ==
--- NOTE | 2023-05-27 07:45 | DI.DEXA_ITS ---
Exam(s) XR DEXA BONE DENSITY W/WO OSORIO EXAM: XR DEXA BONE DENSITY W/WO OSORIO CLINICAL HISTORY: eval bone density,SCREENING FOR OSTEOPOROSIS IN POSTMENOPAUSAL WOMAN,Z78.0 TECHNIQUE: COMPARISON: No exams were available for comparison FINDINGS: Lateral Spine Image: Unremarkable. No compression deformities identified. Left hip: Total T-Score: -1.3 Total Z-Score: -0.1 T- and Z-scores: Findings are consistent with osteopenia. Lumbar Spine: Total T-Score: 1.0 Total Z-Score: 2.8 T- and Z-scores: Within normal limits. IMPRESSION: No evidence of osteoporosis.
== END ==
PROVIDERS: PCP Student in an Organized Health Care Education/Training Program; Visit Provider Student in an Organized Health Care Education/Training Program
DX: Z13.820 Encounter for screening for osteoporosis (principal); Z78.0 Asymptomatic menopausal state
CPT/HCPCS: 77080

== ENCOUNTER 2023-06-04 16:38 | Outpatient (CLI) | payer BC, SELFPAY ==
--- NOTE | 2023-06-04 16:30 | RT.EKG_ITS ---
APPROVED REPORT Exam: Resting ECG Reason for Exam: Abnormal heart rhythm Patient Location: O HR:61 bpm ECG Measurements Heart Rate 61 AXIS AZ 155 P 24 QRSd 152 QRS -82 QT 443 T 14 QTc 447 Conclusion Sinus rhythm...normal P axis, V-rate 50- 99 RBBB and LAFB...QRSd >120mS, axis(-40,240)
== END 2023-06-04 16:39 | disposition home or self-care (01) ==
LOC: DI.KIM 16:40
PROVIDERS: PCP Student in an Organized Health Care Education/Training Program; Visit Provider Student in an Organized Health Care Education/Training Program
DX: I49.9 Cardiac arrhythmia, unspecified (principal)
CPT/HCPCS: 93010

== ENCOUNTER 2023-07-08 13:28 | Outpatient (CLI) | payer BC, MEDICARE, SELFPAY ==
[2023-07-08 11:53] LABS: Abs Immature Grans 0.02 10^3/uL (0.0-0.06); Absolute Basophil Count 0.02 10^3/uL (0.0-0.2); Absolute Eosinophil Count 0.05 10^3/uL (0.0-0.7); Absolute Lymphocyte Count 1.48 10^3/uL (1.2-3.4); Absolute Monocyte Count 0.29 10^3/uL (0.1-0.8); Basophils % 0.4; Eosinophils % 0.9; HCT 41.9 % (36.0-46.0); HGB 13.6 g/dL (11.2-15.7); Immature Grans % 0.4; Lymphocytes % 27.1; MCH 28.2 pg (27.0-33.0); MCHC 32.5 % (32.0-36.0); MCV 87 fL (80-95); Monocytes % 5.3; Neutrophils % 65.9; Platelet Count 244 10^3/uL (130-400); RBC 4.82 10^6/uL (3.93-5.22); RDW-SD 40.1 fL; WBC 5.46 10^3/uL (4.4-10.8)
[2023-07-08 12:09] LABS: ALT 23 U/L (14-59); AST 22 U/L (15-37); Albumin 3.1 g/dL (3.4-5.0); Alkaline Phosphatase 95 U/L (46-116); Anion Gap 5.7 mmol/L (3-11); BUN 22 mg/dL (7-18); Bilirubin, Total 0.4 mg/dL (0.2-1.0); CO2 29.3 mmol/L (21.0-32.0); CREATININE 1.1 mg/dL (0.55-1.02); Calcium 8.6 mg/dL (8.5-10.1); Chloride 103 mmol/L (98-107); Estimated GFR 56.11 (mL/min/1.73m2); Glucose 101 mg/dL (74-106); Potassium 3.9 mmol/L (3.5-5.1); Sodium 138 mmol/L (136-145); Total Protein 7.1 g/dL (6.4-8.2)
[2023-07-08 13:43] LABS: Vitamin D 25 Total < 5 ng/mL (30-100)
[2023-07-08 21:07] LABS: CEA <0.5 ng/mL (See Note)
== END 2023-07-08 13:29 | disposition home or self-care (01) ==
LOC: LBO 07-09 13:28
PROVIDERS: PCP Student in an Organized Health Care Education/Training Program; Visit Provider Nurse Practitioner Family
DX: C18.7 Malignant neoplasm of sigmoid colon (principal)
CPT/HCPCS: 36415; 80053; 82306; 85027; 82378; 85025

== ENCOUNTER 2023-09-03 08:39 | Outpatient (CLI) | payer BC, SELFPAY ==
--- NOTE | 2023-09-03 08:30 | RT.EKG_ITS ---
APPROVED REPORT Exam: Resting ECG Reason for Exam: Preoperative evaluation Patient Location: O HR:63 bpm ECG Measurements Heart Rate 63 AXIS AK 158 P 56 QRSd 144 QRS -85 QT 423 T 19 QTc 434 Conclusion Sinus rhythm...normal P axis, V-rate 50- 99 RBBB and LAFB...QRSd >120mS, axis(-40,240) I have reviewed and interpreted ECG and agree with software generated interpretation.
== END 2023-09-03 08:40 | disposition home or self-care (01) ==
LOC: DI.KIM 08:40
PROVIDERS: PCP Student in an Organized Health Care Education/Training Program; Visit Provider Student in an Organized Health Care Education/Training Program
DX: Z01.818 Encounter for other preprocedural examination (principal)
CPT/HCPCS: 93010

== ENCOUNTER → 2023-12-29 02:39 | Outpatient (CLI) | payer MEDICARE, MEDICAID, SELFPAY ==
--- NOTE | 2023-12-29 | DI.CT_ITS ---
Exam(s) CT CHEST/ABD/PEL W EXAM: CT CHEST/ABD/PEL W CLINICAL HISTORY: COLON CANCER C18.7 MONITOR TECHNIQUE: Imaging Protocol: Axial computed tomography images with coronal and sagittal reformatted images were created and reviewed CONTRAST MATERIAL: Intravenous: Omnipaque 350 contrast volume:100 mL Oral: Yes COMPARISON: CT CT CHEST/ABD/PEL W from 11/11/[address] CHEST/ABD/PEL W from 01/04/2023 FINDINGS: CHEST: Tracheobronchial tree: Patent where visualized. Pulmonary parenchyma: No consolidation or dominant measurable mass. There are calcified granulomas pr esent no new pulmonary nodules are seen. Visualized thyroid gland: Unremarkable. Mediastinum and Lou: No dominant adenopathy or fluid collection. The esophagus is unremarkable. Pleura: No effusion or pneumothorax. Heart: The heart is not dilated. No coronary artery calcifications are seen. No pericardial effusion. Pulmonary arteries: No pulmonary emboli are identified. Aorta: Thoracic aorta non-dilated. No evidence of dissection. Atherosclerotic calcification is prese nt. Lymph nodes: Within normal limits. Soft tissues: Unremarkable. Bones:Within normal limits for the patient's age. No aggressive osseous lesions are present. ABDOMEN: Liver: Normal density. No measurable mass. Portal, Superior Mesenteric, and Splenic Veins: Unremarkable. Gallbladder and Biliary Tract: No radiodense calculus or dilation. Pancreas: Normal density, no abnormal calcifications or inflammatory process. Spleen: Normal. Adrenals: No masses seen. Kidneys: Normal size, contour and axis. No radiodense stones or obstructive uropathy. No masses seen. Abdominal Aorta: Abdominal portion non-dilated. Atherosclerotic calcification is present. Bowel: No obstruction or bowel wall thickening. There is an anastomosis in the sigmoid colon which ap pears unremarkable. There is a moderate amount of stool throughout the colon. No evidence of append icitis. Peritoneal Cavity: No ascites, collection or mesenteric inflammatory response. No free air. Lymph Nodes: Within normal limits. Bones: Within normal limits for the patient's age. No aggressive osseous lesions are seen. Soft Tissues: Unremarkable. PELVIS: Bladder: Stable mild uniform thickening of the wall of the urinary bladder is seen. No intraluminal masses present. Reproductive Organs: Unremarkable as visualized. Lymph Nodes: Within normal limits. Bones: Within normal limits. IMPRESSION: 1. Stable appearance of the chest, abdomen and pelvis. 2. No findings to suggest thoracic, abdominal or pelvic metastatic disease at this time. RADIATION DOSE DELIVERED: 1,299.2mGy.cm Total DLP DATA REPOSITORY: All CT scans at this facility are submitted to the National Radiology Data Registry (NRDR) Dose Index Registry (DIR) with the [employer] (ACR). RADIATION OPTIMIZATION: All CT scans at this facility use at least one of these dose optimization te chniques: automated exposure control; mA and/or kV adjustment per patient size (includes targeted exa ms where dose is matched to clinical indication); or iterative reconstruction.
[2023-12-29] MEDS: Barium Sulfate 2% W/V-Berry Smoothie 450 ML BTL PO (08:18)
[2023-12-29] MEDS: Barium Sulfate 2% W/V-Creamy Vanilla Smoothie 450 ML BTL PO (08:21)
[2023-12-29 08:48] LABS: Abs Immature Grans 0.01 10^3/uL (0.0-0.06); Absolute Basophil Count 0.02 10^3/uL (0.0-0.2); Absolute Eosinophil Count 0.07 10^3/uL (0.0-0.7); Absolute Lymphocyte Count 1.66 10^3/uL (1.2-3.4); Absolute Monocyte Count 0.27 10^3/uL (0.1-0.8); Absolute Neutrophil Count 2.99 10^3/uL (1.2-6.7); Basophils % 0.4 %; Eosinophils % 1.4 %; HCT 42.9 % (36.0-46.0); HGB 13.8 g/dL (11.2-15.7); Immature Grans % 0.2 %; Lymphocytes % 33.1 %; MCH 28.4 pg (27.0-33.0); MCHC 32.2 % (32.0-36.0); MCV 88 fL (80-95); MPV 8.1 fL (8.0-11.0); Monocytes % 5.4 %; Neutrophils % 59.5 %; Platelet Count 267 10^3/uL (130-400); RBC 4.86 10^6/uL (3.93-5.22); RDW 12.5 % (11.7-14.6); RDW-SD 40.7 fL; WBC 5.02 10^3/uL (4.4-10.8)
[2023-12-29 09:11] LABS: ALT 23 U/L (14-59); AST 22 U/L (15-37); Albumin 2.8 g/dL (3.4-5.0); Alkaline Phosphatase 118 U/L (46-116); Anion Gap 4.7 mmol/L (3-11); BUN 17 mg/dL (7-18); Bilirubin, Total 0.4 mg/dL (0.2-1.0); CO2 31.3 mmol/L (21.0-32.0); Calcium 8.9 mg/dL (8.5-10.1); Chloride 105 mmol/L (98-107); Estimated GFR 62.52 (mL/min/1.73m2); Glucose 96 mg/dL (74-106); Potassium 4.3 mmol/L (3.5-5.1); Sodium 141 mmol/L (136-145); Total Protein 6.8 g/dL (6.4-8.2)
[2023-12-29] MEDS: Omnipaque 350 MG/ML 100 ML BTL IJ (10:41)
[2023-12-29] MEDS: Normal Saline Flush 10 ML SYR IVP (10:44)
[2023-12-29 18:02] LABS: CEA <0.5 ng/mL (See Note)
== END ==
PROVIDERS: PCP Student in an Organized Health Care Education/Training Program; Visit Provider Nurse Practitioner Family
DX: C18.7 Malignant neoplasm of sigmoid colon (principal)
CPT/HCPCS: 74177; 80053; 71260; 82378; 85025; J3490

== ENCOUNTER → 2024-01-10 15:23 | Outpatient (BNVA) | payer MEDICARE, MEDICAID, SELFPAY | PROVIDERS: PCP Student in an Organized Health Care Education/Training Program; Referring Provider Student in an Organized Health Care Education/Training Program; Visit Provider Podiatrist | DX: Z79.01 Long term (current) use of anticoagulants (principal); I83.813 Varicose veins of bilateral lower extremities with pain; I87.2 Venous insufficiency (chronic) (peripheral); L60.3 Nail dystrophy; M25.571 Pain in right ankle and joints of right foot; B35.1 Tinea unguium; Q82.8 Other specified congenital malformations of skin; M79.675 Pain in left toe(s) | CPT/HCPCS: 11719; 11720 ==

== ENCOUNTER 2024-06-19 01:14 | Outpatient (CLI) | payer MEDICARE, MEDICAID, SELFPAY | END 2024-06-19 01:34 | LOC: DI 01:14 | PROVIDERS: PCP Student in an Organized Health Care Education/Training Program; Visit Provider Podiatrist | DX: L60.3 Nail dystrophy (principal); B35.1 Tinea unguium; I87.2 Venous insufficiency (chronic) (peripheral); Z79.01 Long term (current) use of anticoagulants; I83.813 Varicose veins of bilateral lower extremities with pain; I73.89 Other specified peripheral vascular diseases; R60.0 Localized edema; R20.8 Other disturbances of skin sensation; L65.9 Nonscarring hair loss, unspecified | CPT/HCPCS: 11719; 11720 ==

== ENCOUNTER 2024-09-21 03:02 | Outpatient (CLI) | payer MEDICARE, MEDICAID, SELFPAY ==
[2024-09-21 14:12] LABS: HGB 13.6 g/dL (11.2-15.7); MCH 28.9 pg (27.0-33.0); MCHC 32.4 % (32.0-36.0); MCV 89 fL (80-95); MPV 8.5 fL (8.0-11.0); Platelet Count 244 10^3/uL (130-400); RBC 4.71 10^6/uL (3.93-5.22); RDW 13.2 % (11.7-14.6); WBC 5.67 10^3/uL (4.4-10.8)
[2024-09-21 15:10] LABS: ALT 20 U/L (14-59); AST 21 U/L (15-37); Albumin 2.8 g/dL (3.4-5.0); Alkaline Phosphatase 103 U/L (46-116); Anion Gap 5.2 mmol/L (3-11); BUN 17 mg/dL (7-18); Bilirubin, Total 0.21 mg/dL (0.2-1.0); CO2 29.8 mmol/L (21.0-32.0); CREATININE 0.9 mg/dL (0.55-1.02); Calcium 9.2 mg/dL (8.5-10.1); Chloride 107 mmol/L (98-107); Estimated GFR 70.95 (mL/min/1.73m2); Glucose 97 mg/dL (74-106); Potassium 4.2 mmol/L (3.5-5.1); Sodium 142 mmol/L (136-145); TSH 3.32 uIU/mL (0.36-3.74); Total Protein 6.6 g/dL (6.4-8.2); Vitamin D 25 Total 46.9 ng/mL (30-100)
== END 2024-09-21 03:03 | disposition home or self-care (01) ==
PROVIDERS: Emergency Medicine; PCP Nurse Practitioner Adult Health; Visit Provider Nurse Practitioner Adult Health
DX: E88.09 Other disorders of plasma-protein metabolism, not elsewhere classified (principal); E46 Unspecified protein-calorie malnutrition; M25.579 Pain in unspecified ankle and joints of unspecified foot; E55.9 Vitamin D deficiency, unspecified; E03.9 Hypothyroidism, unspecified
CPT/HCPCS: 36415; 80053; 82306; 85027; 84443

== ENCOUNTER → 2024-10-02 13:52 | Outpatient (BNVA) | payer MEDICARE, MEDICAID, SELFPAY | PROVIDERS: PCP Nurse Practitioner Adult Health; Referring Provider Student in an Organized Health Care Education/Training Program; Visit Provider Podiatrist | DX: L60.3 Nail dystrophy (principal); B35.1 Tinea unguium; I83.813 Varicose veins of bilateral lower extremities with pain; I87.2 Venous insufficiency (chronic) (peripheral); M79.675 Pain in left toe(s); R60.0 Localized edema; L65.9 Nonscarring hair loss, unspecified; R20.8 Other disturbances of skin sensation; L60.2 Onychogryphosis; R20.2 Paresthesia of skin | CPT/HCPCS: 11719; 11720 ==

== ENCOUNTER → 2025-01-01 13:29 | Outpatient (BNVA) | payer MEDICARE, MEDICAID, SELFPAY | PROVIDERS: PCP Nurse Practitioner Adult Health; Referring Provider Nurse Practitioner Adult Health; Visit Provider Podiatrist | DX: L60.3 Nail dystrophy (principal); B35.1 Tinea unguium; I83.813 Varicose veins of bilateral lower extremities with pain; I87.2 Venous insufficiency (chronic) (peripheral); I73.89 Other specified peripheral vascular diseases; R60.0 Localized edema; L65.9 Nonscarring hair loss, unspecified; R20.8 Other disturbances of skin sensation; L60.2 Onychogryphosis; L60.8 Other nail disorders | CPT/HCPCS: 11719; 11720 ==

== ENCOUNTER 2025-03-07 04:12 | Outpatient (CLI) | payer MEDICARE, MEDICAID, SELFPAY ==
[2025-03-07 08:29] LABS: HGB 14.1 g/dL (11.2-15.7)
[2025-03-07 11:22] LABS: Anion Gap 4.2 mmol/L (3-11); BUN 17 mg/dL (7-18); CO2 29.8 mmol/L (21.0-32.0); Calcium 8.9 mg/dL (8.5-10.1); Calculated LDL 238 mg/dL (<100); Chloride 106 mmol/L (98-107); Cholesterol 318 mg/dL (<200); Estimated GFR 62.13 (mL/min/1.73m2); Glucose 108 mg/dL (74-106); HDL Cholesterol 59 mg/dL (>or=50); Potassium 4.2 mmol/L (3.5-5.1); Sodium 140 mmol/L (136-145); TSH (W/Ref FT4) 1.72 uIU/mL (0.36-3.74); Triglyceride 108 mg/dL (<150)
[2025-03-08 14:28] LABS: Lab Add On Test DONE
[2025-03-08 17:53] LABS: Hemoglobin A1C 5.5 % (<5.7)
== END 2025-03-07 04:13 | disposition home or self-care (01) ==
LOC: LBO 04:12
PROVIDERS: PCP Nurse Practitioner Adult Health; Visit Provider Student in an Organized Health Care Education/Training Program
DX: Z86.2 Personal history of diseases of the blood and blood-forming organs and certain disorders involving the immune mechanism (principal); R53.83 Other fatigue; R79.89 Other specified abnormal findings of blood chemistry; I10 Essential (primary) hypertension; Z13.220 Encounter for screening for lipoid disorders
CPT/HCPCS: 36415; 80048; 80061; 83036; 84443; 85018

== ENCOUNTER 2025-03-12 10:09 | Outpatient (CLI) | payer MEDICARE, MEDICAID, SELFPAY ==
--- NOTE | 2025-03-12 07:30 | DI.RAD_ITS ---
Exam(s) XR SHOULDER RT COMPLETE 2+V EXAM: XR SHOULDER RT COMPLETE 2+V CLINICAL HISTORY: assess bony alignment M25.511 PAIN RT SHOULDER. TECHNIQUE: 2D digital imaging was performed. COMPARISON: No exams were available for comparison FINDINGS: Five views No evidence of fracture or dislocation nor abnormal soft tissue calcifications. However, there is upward subluxation of the humeral head in the glenoid fossa with subsequent diminution of the subacromial space. This is probably consistent with chronic full-thickness rotator cuff tear. There are mild degenerative changes in the glenohumeral and AC joints. Bone density normal. No osseous lesions. IMPRESSION: Diminished subacromial space with upward subluxation of the humeral head in the osseous glenoid fossa. This finding is usually associated with full-thickness chronic tear of the rotator cuff tendon. DATA REPOSITORY: RADIATION DOSE DELIVERED:
--- NOTE | 2025-03-12 07:30 | DI.MAMMO_ITS ---
Exam(s) MAMMO SCREENING EXAM: MAMMO SCREENING CLINICAL HISTORY: screening Z12.39. TECHNIQUE: Bilateral full field digital CC and MLO mammographic images were obtained with 3D tomosynthesis and utilizing computer aided detection (CAD). COMPARISON: Prior mammograms were reviewed. FINDINGS: There has been no significant change in the appearance and distribution of the fibroglandular tissue. There are no CAD designations. There are no new spiculated masses nor malignant appearing microcalcification groups. Two small nodular densities in the breast are unchanged from at least 2019 and therefore benign, these evident on the CC 3D images. There is no significant architectural distortion nor skin thickening-retraction. IMPRESSION: No radiographic evidence of malignancy. Stable benign findings BI-RADS Category 2 - Benign Findings Breast Density - Category B - There are scattered areas of fibroglandular density. Breast density Category C or D implies that the patient has dense breast tissue. Dense breast tissue can make it harder to find cancer on a mammogram. Dense breast tissue is also associated with an increased risk of breast cancer. This information about the result of the mammogram report was provided to the patient to raise their awareness. Use this report when you speak with the patient about their risks for breast cancer, which includes their family history. At that time, you may recommend additional screening tests (Ultrasound or MRI) as these tests may add significant information. A negative radiographic report should not delay biopsy if a dominant or clinically suspicious mass is present. Up to ten percent of cancers are not identified on mammography. A negative report may reinforce clinical impression. Adenosis and dense breasts may obscure an underlying neoplasm. False positive reports average 6 to 10%. Patient will receive a letter notifying them of these results.
== END 2025-03-12 10:29 ==
PROVIDERS: PCP Nurse Practitioner Adult Health; Visit Provider Nurse Practitioner Adult Health
DX: M25.511 Pain in right shoulder (principal); Z12.31 Encounter for screening mammogram for malignant neoplasm of breast; R92.323 Mammographic fibroglandular density, bilateral breasts
CPT/HCPCS: 77063; 77067; 73030

== ENCOUNTER → 2025-04-09 14:19 | Outpatient (BNVA) | payer MEDICARE, MEDICAID, SELFPAY | PROVIDERS: PCP Nurse Practitioner Adult Health; Referring Provider Nurse Practitioner Adult Health; Visit Provider Podiatrist | DX: I83.813 Varicose veins of bilateral lower extremities with pain (principal); I87.2 Venous insufficiency (chronic) (peripheral); I73.89 Other specified peripheral vascular diseases; L60.3 Nail dystrophy; B35.1 Tinea unguium; R09.89 Other specified symptoms and signs involving the circulatory and respiratory systems; L65.9 Nonscarring hair loss, unspecified; R20.8 Other disturbances of skin sensation; R60.0 Localized edema; I83.93 Asymptomatic varicose veins of bilateral lower extremities; L60.2 Onychogryphosis; L60.8 Other nail disorders; L85.8 Other specified epidermal thickening | CPT/HCPCS: 11719; 11720 ==

== ENCOUNTER 2025-04-18 15:19 | Outpatient (CLI) | payer MEDICARE, MEDICAID, SELFPAY ==
[2025-04-19 18:36] LABS: CEA <0.5 ng/mL (See Note)
== END 2025-04-18 15:20 | disposition home or self-care (01) ==
LOC: LBO 15:19
PROVIDERS: PCP Nurse Practitioner Adult Health; Visit Provider Nurse Practitioner Adult Health
DX: Z85.038 Personal history of other malignant neoplasm of large intestine (principal); R73.01 Impaired fasting glucose
CPT/HCPCS: 36415; 82378